=== PATIENT | female | born 1935 | race Caucasian/White ===

== ENCOUNTER → 2018-06-14 | Outpatient (CLI) | payer MEDICARE ==
[2018-06-14 15:48] LABS: PLATELET COUNT, AUTOMATED 445 K/uL (150-450)
== END ==
LOC: LAB 15:13
PROVIDERS: ATTEND Nurse Practitioner Family
DX: R19.7 Diarrhea, unspecified (principal); R10.9 Unspecified abdominal pain
CPT/HCPCS: 36415; 82040; 82247; 82310; 82374; 82435; 82565; 82728; 82947; 83540; 83550; 83735; 84075; 84132; 84155; 84295; 84450; 84460; 84520; 85025; 85651; 86140

== ENCOUNTER 2018-09-12 15:23 | Inpatient (IN) | payer MEDICARE ==
[~2018-09-12] VITALS: Ht 154.9 cm; Wt 41.3 kg
[2018-09-12 16:16] VITALS: BP 164/107
[2018-09-12 19:32] VITALS: BP 145/103
--- NOTE | 2018-09-12 19:32 | History & Physical ---
History of Present Illness Chief Complaint HERNÁNDEZ History of Present Illness 83F with limited PMHx presented with gradual onset HERNÁNDEZ, fatigue, weakness. Reports for several weeks to months has been sleeping upright in chair and finding it harder to get around. Had fall and seemed to have been doing better per son. He lives in [place] and was able to come out and see her then, spoke with him over the phone. She has generally not trusted doctors and avoided them. Denies any chest pain but has clinical signs of heart failure on examination. BNP >1800, admitted for further management and evaluation. History Unable To Obtain Past Medical: Unable to Obtain/Update Home Meds No Active Prescriptions or Reported Meds Allergies: Coded Allergies: No Known Drug Allergies (Unverified , 06/14/18) Patient History: FH: cataracts MOTHER, Smoking Status: Never Smoker Social Drug Use: Never Review of Systems All Systems Reviewed/Normal: Yes, Except as Noted Constitutional: No Fever Cardiovascular: Other (orthopnea); No Chest Pain, No Palpitations, No Orthostatic Hypotension Respiratory: Shortness of Breath, Cough Gastrointestinal: No Nausea, No Vomiting Musculoskeletal: No Pain Exam Vital Signs Vital Signs Date Time Temp Pulse Resp B/P (MAP) Pulse Ox O2 Delivery O2 Flow Rate FiO2 09/12/18 16:30 98 Nasal Cannula 2.0 09/12/18 16:16 98.1 164/107 (126) 09/12/18 16:09 92 16 General Appearance: Alert (mild distress), Awake, Afebrile Neuro: No Gross deficits ENT: Normal Cardiovascular: Other (summation gallop) Respiratory: Other (2L NC and coarse breath sounds b/l) GI: Abd Soft and Non-Tender Musculoskeletal: No Weakness/Pain Extremities: Soft and Non Tender, Warm, Pulses, Perfused, Edema (moderate/sev ere pitting edema to abdomen) Integumentary: Skin Intact without Lesion / Mass Medical Decision Making EKG / Imaging EKG Interpretation NSR with 1st degree av block Assessment and Plan Problems: (1) Heart failure Assessment & Plan: Clinical diagnosis, BNP > 1800, will get ECHO. Place Taylor for accurate I/O, begin IV diuresis and monitor electrolytes. (2) Hypothyroid Assessment & Plan: Per review of labs, will begin small amount levothyroxine. (3) Microcytic anemia Assessment & Plan: Iron studies pending. 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
[2018-09-12] MEDS: FUROSEMIDE 40 MG/4 ML VIAL IVP SCH (22:36)
[2018-09-13] VITALS (7 sets, daily range): BP systolic 123–153; BP diastolic 72–101; Ht 154.9 cm; Wt 41.3 kg
[2018-09-13] MEDS: LEVOTHYROXINE SOD 0.05 MG TAB PO SCH (05:36)
[2018-09-13] MEDS: FUROSEMIDE 40 MG/4 ML VIAL IVP SCH ×2 (08:10→14:50)
[2018-09-13] MEDS: ENOXAPARIN 40 MG/0.4ML SYR SC SCH (08:10)
[2018-09-13] MEDS: POTASSIUM CHL 10 MEQ TABCR PO SCH ×3 (11:26→17:41)
--- NOTE | 2018-09-13 12:25 | NUR ---
Physical Therapy Impression PT/OT nataliiaal completed and pt declines use of any assistive device, noting that she uses furniture for support in her home. Pt demos path deviation with ambulation and depth perception is affected when completing up/down platform steps. Pt became SOB after 100' ambulation on room air and did require a standing rest break. Physical Therapy Goals 1. Pt to be SBA/Modified indep for bed mobility and supine to/from sit 2. Pt to be Min/CGA for sit to/from stand transfers 3. Pt to ambulate x 150' with hand held assist or rail for support and maintain sats above 86% on room air. Patient's Goals
--- NOTE | 2018-09-13 13:26 | NUR ---
Occupational Therapy Impression (I) bed mobility. Pt adamantly refusing use of RW. Reports "furniture crawling" at home. SBA ambulation x150ft with handheld assist. SpO2 >90% on room air at rest. SpO2 80% on room air during ambulation. Seated up in chair for lunch. Recommendation pending further information regarding PLOF and assist from neighbor "Betsey." Pt may benefit from short term rehab or HH services/cardiac rehab. Occupational Therapy Goals 1) Pt will be SBA UB/LB dressing. 2) Pt will be SBA grooming/hygiene. 3) Pt will be SBA toilet task. Patient's Goal
--- NOTE | 2018-09-13 15:35 | Medical Nutrition Therapy ---
Nutrition Anthropometrics Height (Inches): 61.00 Height (Calculated Centimeters: 154.616167 Weight (Pounds): 123 Weight (Calculated Kilograms): 56.019 Guillermo Nutrition Score: Probably Inadequate Guillermo Nutrition Risk Score: 17 Dietary Referral Nutrition Risk Factors: Special Diet Nutrition Risk Comment: Decreased taste. Heart Failure Diet Physical Findings Physical Appearance: Skin Appearance Skin Appearance: Edema Edema Location Modifier: Both Edema Location: Foot Type of Edema: Degree of Edema: 3+ Gastrointestinal Symptoms GI Symtoms: Tube Present: Bowel Sounds: Recent Bowel Pattern: Stool Characteristics: Nutritional Diagnosis Nutritional Risk Acuity 2: CHF w/Complication Nutritional Risk Acuity 4: Modified Diet Past Medical History: Heart Failure, Hyperthyroid, Microcytic Anemia Nutritional Acuity: 2-Moderate Nutrition Diagnosis: Inability to Prep Meals Nutrition Etiology: Impaired Cognitive Abilty Nutrition Problem/Etiology/Sym: Inability to prep meals as evidenced by impaired cognitive ability as related to son sending unhealthy foods, neighbor prepping food and grocery shopping Energy Requirement: 1359 (M St. Jeor X1.1 (TEF) X 1.3 (activity factor)) Protein Requirement: 56 (1 g protein/kg) Fluid Requirement: 1400 Diet Type: CHF Diet Nutrition Intervention: Encourage intake, Change diet, Vit/min support Drug: Diuretics Drug/Nutrition Recommendations: Check Serum K+, Potassium Supplement Nutritional Education Nutrition Education Topic: Congested Heart Failure Learning Barriers: Cognitive, Emotional Learning Readiness: Eager Teaching Methods: Discussion, Handout Response to Teaching: Unable to return demo, Unable to comprehend Teaching Recipient: Patient, Primary Caregiver Nutrition Counseling: RD discussed the heart failure diet with pt and caregiver. Pt had cognitive barriers and did not understand nutrition education. Caregiver was familar with the low sodium diet. RD provided a handout and a discussion with the caregiver on low sodium foods, and avoiding using the salt shaker. -[facility] Nutrition Monitoring & Eval Nutrition Goals: Eat 50-100% Meal, Drink > 1500 cc/day RD Patient Assessment Time: [address] Assessment Type: RD Assessment Patient Nutrition Acuity: 2-Moderate Follow Up Date: Sep 17, 2018 Nutritional Comment: Pt. admitted for HERNÁNDEZ. Pt. has a hx of Heart Failure, Hyperthyroid, Mirocytic Anemia. Pt. is experiencing pitting edema in both feet. Pt. has high BUN levels. Pt. has low iron, Ca, AA, and Albumin levels. Pt. is on a POtassium wasting diuretic (furosemide) and anticoagulant. Pt. is on CHF diet and TREVOR, recommend CHF diet with discontinuation of TREVOR. Monitor edema and anemia status. Monitor food intake. -CHANG 09/13/18 Education provided by DAMIAN. Note reviewed by DAMIAN.-GARRET MONTE Sep 13, 2018 15:35
--- NOTE | 2018-09-13 15:42 | Hospitalist Progress Note ---
Subjective Progress Notes Subjective She reports continued increased WOB. Staff notes improvement in LE edema. Physical Exam Vital Signs Date Time Temp Pulse Resp B/P (MAP) Pulse Ox O2 Delivery O2 Flow Rate FiO2 09/13/18 11:30 83 09/13/18 11:27 97.6 71 20 130/81 (97) Nasal Cannula 0.5 Intake and Output 09/13/18 07:00 Output Total 1575 ml Balance -1575 ml Output Urine Total 1575 ml General Appearance: Alert, Awake, Other (tachypneic. Taking shallow breaths) Cardiovascular: Regular Rate and Rhythm Respiratory: Clear to Auscultation Extremities: Edema (1+ pitting in ankles. Wrinkled skin on shins bilaterally) Result Diagram: 09/13/18 0548 Assessment and Plan Problems: (1) Heart failure Status: Acute Assessment & Plan: The patient presented with sleeping upright for months and progressive HERNÁNDEZ, fatigue and weakness. She was hypoxic, had moderate bilateral pleural effusions on CXR and had significant LE edema. Echo shows an EF 35-40%, global hypokinesis, moderate MR, severe TR, mild AR, small pericardial effusion. She is diuresing well on scheduled IV Lasix. Will need to start Coreg when stable. Also, will need f/u with Cardiology. (2) Hypothyroid Assessment & Plan: Per review of labs, started on a small amount levothyroxine. (3) Microcytic anemia Assessment & Plan: Iron deficient. Will check for occult blood. (4) Aortic aneurysm Status: Chronic Assessment & Plan: Echo shows a proximal ascending aorta dilated to 4.0cm. Will need close follow up. (5) Cataract Assessment & Plan: chronic Exam Sepsis Risk: No Definite Risk Problem Qualifiers (1) Heart failure: Heart failure type: systolic Heart failure chronicity: acute Qualified Codes: I50.21 - Acute systolic (congestive) heart failure KILLIAN ANDERSON MD Sep 13, 2018 15:42
--- NOTE | 2018-09-13 16:41 | NUR ---
Psych/soc Patient states that her eye sight is poor and she is unable to care for herself. She feels as though she is a burden to her neighbor and son. She states she is ready "for ." Patient states she is at peace with this decision. Denies suicidal thoughts.
[2018-09-13] MEDS ORDERED: GI COCKTAIL 60 ML BTL PO PRN (19:35)
[2018-09-13] MEDS ORDERED: PROMETHAZINE 25 MG/ML 1 ML AMP IVP ONE (22:35)
[2018-09-14 05:22] VITALS: BP 132/88
[2018-09-14] MEDS: LEVOTHYROXINE SOD 0.05 MG TAB PO SCH (05:28)
[2018-09-14 06:23] LABS: PLATELET COUNT, AUTOMATED 272 K/uL (150-450)
[2018-09-14 06:59] VITALS: BP 136/82
[2018-09-14] MEDS ORDERED: FERROUS SULFATE 325 MG TAB PO SCH (08:00)
[2018-09-14] MEDS ORDERED: FUROSEMIDE 40 MG TAB PO SCH (09:00)
[2018-09-14] MEDS: ENOXAPARIN 40 MG/0.4ML SYR SC SCH ×2 (09:00→09:26)
[2018-09-14] MEDS ORDERED: POTASSIUM CHL PWDR 20 MEQ PKT PO SCH (09:00)
[2018-09-14] MEDS ORDERED: INFLUENZA VIRUS VAC 0.5ML SYR IM ONLY ONE (09:00)
[2018-09-14] MEDS ORDERED: FUROSEMIDE 20 MG TAB PO SCH (09:00)
[2018-09-14] MEDS ORDERED: METOPROLOL SUCC XL 25 MG TABCR PO SCH (09:00)
--- NOTE | 2018-09-14 11:53 | NUR ---
Physical Therapy Impression PT/OT co-treat for pt safety and time split for billing purposes. Pt is primarily limited by her vision and notes that at home she utilizes furniture to know where she is and for additional support. Pt demos significant improvement since yesterday for ambulation tolerance and is able to maintain >85% on room air with 300' and hand held assist for safety. Pt would certainly benefit from further short-term subacute rehab or [facility] services, but is currently declining any assistance and is requesting to discharge home with assistance of her previous care providers. Physical Therapy Goals 1. Pt to be SBA/Modified indep for bed mobility and supine to/from sit 2. Pt to be Min/CGA for sit to/from stand transfers 3. Pt to ambulate x 150' with hand held assist or rail for support and maintain sats above 86% on room air. Patient's Goals
--- NOTE | 2018-09-14 12:46 | NUR ---
ECF Referral - Discussed with patient the benefits of skilled rehab. Patient stated several times "I'm going home". Attempted to persuade her, she simply looked up and said "You still here?". "I'm going home".
--- NOTE | 2018-09-14 14:08 | Hospitalist Progress Note ---
Subjective Progress Notes Subjective 83F admitted with new diagnosis HFrEF. FANY overnight, diuresed well. Discussed goals of care, she would like to go home without home health. Patient Complains of: Cardiovascular: No: Chest Pain Gastrointestinal: No Nausea, No Vomiting Physical Exam Vital Signs Date Time Temp Pulse Resp B/P (MAP) Pulse Ox O2 Delivery O2 Flow Rate FiO2 09/14/18 06:59 97.9 79 18 136/82 (100) Nasal Cannula 1.0 09/14/18 05:22 96 Intake and Output 09/14/18 07:00 Intake Total 1220 ml Output Total 6275 ml Balance -5055 ml Intake Oral 1220 ml Output Urine Total 6275 ml General Appearance: Alert, Awake, No Acute Distress, Afebrile Neuro: No Gross deficits Eyes: Other (b/l cataract) ENT: Normal Cardiovascular: Normal Rhythm & Peripheral Pulses Respiratory: No Respiratory Distress GI: Soft and Non-Tender Musculoskeletal: No Weakness/Pain Extremities: Soft and Non Tender, Warm, Pulses, Perfused, Edema (much improved mild pitting edema) Integumentary: Skin Intact without Lesion / Mass Result Diagram: 09/14/1854509/14/18545 Assessment and Plan Problems: (1) Heart failure Status: Acute Assessment & Plan: The patient presented with sleeping upright for months and progressive HERNÁNDEZ, fatigue and weakness. She was hypoxic, had moderate bilateral pleural effusions on CXR and had significant LE edema. Echo shows an EF 35-40%, global hypokinesis, moderate MR, severe TR, mild AR, small pericardial effusion. She is diuresing well on scheduled Lasix. Started 12.5mg Metoprolol Succinate, 40mg PO Lasix daily. If safe to ambulate likely discharge tomorrow, recommend HH but she is refusing. Also, will need f/u with Cardiology. (2) Hypothyroid Assessment & Plan: Per review of labs, started on a small amount levothyroxine. (3) Microcytic anemia Assessment & Plan: Iron deficient. Will check for occult blood. Started iron supplement. (4) Aortic aneurysm Status: Chronic Assessment & Plan: Echo shows a proximal ascending aorta dilated to 4.0cm. Will need close follow up. (5) Cataract Assessment & Plan: chronic Exam Sepsis Risk: No Definite Risk Problem Qualifiers (1) Heart failure: Heart failure type: systolic Heart failure chronicity: acute Qualified Codes: I50.21 - Acute systolic (congestive) heart failure NOÉ FORREST DO Sep 14, 2018 14:08
[2018-09-14 14:17] VITALS: BP 165/91
--- NOTE | 2018-09-14 14:21 | NUR ---
Occupational Therapy Impression Co-treat with PT. OT recommends pt. d/c to short term subacute rehab. Pt. not willing to do so. Pt. refusing care services as well. Pt. will d/c to home with assistance from caregiver. Occupational Therapy Goals 1) Pt will be SBA UB/LB dressing. 2) Pt will be SBA grooming/hygiene. 3) Pt will be SBA toilet task. Patient's Goal
[2018-09-14] MEDS ORDERED: LEVO50TA86 PO (15:32)
[2018-09-14] MEDS ORDERED: FURO-45 PO (15:32)
[2018-09-14] MEDS ORDERED: METO25TA23 PO (15:32)
--- NOTE | 2018-09-14 15:38 | Hospitalist Depart ---
Discharge Summary Reason for Hosp/Final Diag: (1) Heart failure Status: Acute Hospital Course & Plan: The patient presented with sleeping upright for months and progressive HERNÁNDEZ, fatigue and weakness. She was hypoxic, had moderate bilateral pleural effusions on CXR and had significant LE edema. Echo shows an EF 35-40%, global hypokinesis, moderate MR, severe TR, mild AR, small pericardial effusion. She is diuresing well on scheduled Lasix. Started 12.5mg Metoprolol Succinate, 20mg PO Lasix daily. Will need follow up with PCP to monitor and adjust heart failure medication. (2) Hypothyroid Hospital Course & Plan: Per review of labs, started on a small amount levothyr oxine. (3) Microcytic anemia Hospital Course & Plan: Iron deficient. Recommend iron supplementation, did not start at this time as she has trouble trusting doctors and prioritized heart failure and thyroid Rx. (4) Aortic aneurysm Status: Chronic Hospital Course & Plan: Echo shows a proximal ascending aorta dilated to 4.0cm. Will need close follow up. (5) Cataract Hospital Course & Plan: chronic Departure Weight (Pounds): 91 Weight (Ounces): 8.0 Result Diagram: 09/14/1854509/14/18545 Condition: Improved Discharge Instructions Home Meds Active Scripts Metoprolol Succinate (METOPROLOL SUCCINATE) 25 Mg Tab.er.24h, 12.5 MG PO DAILY for 90 Days, #45 TAB Prov:NOÉ FORREST DO 09/14/18 Furosemide (FUROSEMIDE) 20 Mg Tablet, 1 TAB PO DAILY for 90 Days, #90 TAB Prov:NOÉ FORREST DO 09/14/18 Levothyroxine Sodium (LEVOTHYROXINE SODIUM) 50 Mcg Tablet, 0.05 MG PO QDAY@06 for 90 Days, #90 TAB Prov:NOÉ FORREST DO 09/14/18 Diet: 2 Gram Sodium (NA) Special Instructions: Please follow up with PCP within one week. You have been started on new medications for heart failure and low thyroid. Copies to: BLOSSOM ROMERO MD ; Venous Thromboembolism Antithrombotics Is Pt On Any Antithrombotics?: Yes Problem Qualifiers (1) Heart failure: Heart failure type: systolic Heart failure chronicity: acute Qualified Codes: I50.21 - Acute systolic (congestive) heart failure NOÉ FORREST DO Sep 14, 2018 15:38
== END 2018-09-14 16:45 | disposition home or self-care (01) | DRG 292 ==
LOC: MED 15:43
PROVIDERS: ADMIT Internal Medicine; ATTEND Internal Medicine
DX: I50.21 Acute systolic (congestive) heart failure (principal); I31.3 Pericardial effusion (noninflammatory); E44.0 Moderate protein-calorie malnutrition; Z68.1 Body mass index [BMI] 19.9 or less, adult; R53.1 Weakness; R09.02 Hypoxemia; I34.0 Nonrheumatic mitral (valve) insufficiency; I35.1 Nonrheumatic aortic (valve) insufficiency; I36.1 Nonrheumatic tricuspid (valve) insufficiency; I44.0 Atrioventricular block, first degree; D50.9 Iron deficiency anemia, unspecified; I71.9 Aortic aneurysm of unspecified site, without rupture; H26.9 Unspecified cataract; E03.9 Hypothyroidism, unspecified
CPT/HCPCS: 36415; 71046; 82040; 82247; 82306; 82310; 82374; 82435; 82565; 82607; 82728; 82746; 82947; 83540; 83550; 83880; 84075; 84132; 84155; 84295; 84443; 84450; 84460; 84520; 85025; 85379; 86140; 93306; 97161; 97166; J1650; J1940; J2550

== ENCOUNTER → 2018-09-12 | Outpatient (CLI) | payer MEDICARE ==
[2018-09-12 14:20] LABS: PLATELET COUNT, AUTOMATED 303 K/uL (150-450)
--- NOTE | 2018-09-12 14:22 | EKG ---
FACILITY: [facility] [place] PATIENT NAME: DEJA DOTSON : [id number] MR: [id number] V: [id number] EXAM DATE: ORDERING PHYSICIAN: BLOSSOM ROMERO TECHNOLOGIST: EMMA Test Reason : Blood Pressure : / mmHG Vent. Rate : 084 BPM Atrial Rate : 084 BPM P-R Int : 236 ms QRS Dur : 086 ms QT Int : 384 ms P-R-T Axes : 039 067 052 degrees QTc Int : 453 ms Sinus rhythm with 1st degree AV block Otherwise normal ECG No previous ECGs available Referred By: NICK Confirmed By:
--- NOTE | 2018-09-12 15:05 | RADIOLOGY IMAGING REPORT ---
FACILITY: [facility] PATIENT NAME: Lalita Kenney : 1935 MR: [id number] V: [id number] EXAM DATE: ORDERING PHYSICIAN: BLOSSOM ROMERO TECHNOLOGIST: Location: [facility] [place] Patient: Lalita Kenney : 1935 Visit/Account:[id number] Date of Sevice: 09/12/2018 CHEST PA LAT Indication: Dyspnea. Comparison: None. Findings: Lungs: Bilateral pleural effusions are seen. Prominent interstitial markings throughout both lungs a re noted. Mediastinum/pulmonary vasculature: Heart size and pulmonary vasculature are normal. Bones/soft tissues: There is moderate thoracic scoliosis. IMPRESSION: 1. Bilateral moderate pleural effusions. 2. Prominent interstitial markings both lungs. Differential diagnosis favors chronic interstitial l maldonado disease, however pulmonary vasculature congestion is in the differential diagnosis. There is no acute airspace opacity or pneumonia. This was called by Dr. Cole to BLOSSOM ROMERO on 09/12/2018 2:24 PM Report Dictated By: Clayton Cole at 09/12/2018 2:24 PM Report E-Signed By: Clayton Cole at 09/12/2018 3:00 PM WSN:[id number]
== END ==
LOC: LAB 13:30
PROVIDERS: ATTEND Emergency Medicine
DX: J90 Pleural effusion, not elsewhere classified (principal); M41.84 Other forms of scoliosis, thoracic region; R91.8 Other nonspecific abnormal finding of lung field; I44.0 Atrioventricular block, first degree
CPT/HCPCS: 36415; 71046; 82040; 82247; 82306; 82310; 82374; 82435; 82565; 82607; 82746; 82947; 83540; 83550; 83880; 84075; 84132; 84155; 84295; 84443; 84450; 84460; 84520; 85025; 85379; 86140

== ENCOUNTER 2018-11-02 14:43 | Inpatient (IN) | payer MEDICARE, OTHER ==
[~2018-11-02] VITALS: Ht 154.9 cm; Wt 43.5 kg
[~2018-11-02 14:43] MED LIST: FURO-45 PO; LEVO50TA86 PO; METO25TA23 PO
--- NOTE | 2018-11-02 14:52 | ER Report ---
History and Physical Time Seen By MD: 14:51 HPI/ROS CHIEF COMPLAINT: Weakness HISTORY OF PRESENT ILLNESS: 83 yo female presents to the ED with her neighbor/machine or machinery mechanic with c/o weakness. Drawing Tender states that when she went to patient's house to check on her, the patient was sitting in her chair and stated that "her legs didn't work and her legs would not let her walk.' The machine or machinery mechanic stated that she took the patient to run a few errands on Tuesday and this activity made the patient very tired and weak even though the patient stayed in the car during the errands. When the machine or machinery mechanic checked on patient today she states that the patient seemed in even worse condition than she was on Tuesday. Patient states that she feels very weak and feels like she cannot breathe. She reports abdominal pain but denies difficulty with urination and reports two bowel movements earlier today. Reports chest pain to the anterior upper left side but only when someone "presses on it." Denies N/V/D, fever or cough and denies any recent illness. Patient did state that she holds onto furniture when she walks around her home normally. REVIEW OF SYSTEMS: Constitutional: No fever, no chills. Eyes: No discharge. ENT: No sore throat. Cardiovascular: as above. Respiratory: As above. Gastrointestinal: As above. Genitourinary: As above. Musculoskeletal: As above. Skin: No rashes. Neurological: No headache. Allergies: Coded Allergies: No Known Drug Allergies (Unverified , 06/14/18) Home Meds Active Scripts Metoprolol Succinate (METOPROLOL SUCCINATE) 25 Mg Tab.er.24h, 12.5 MG PO DAILY for 90 Days, #45 TAB Prov:SHAWN AMADORNOÉ DO 09/14/18 Furosemide (FUROSEMIDE) 20 Mg Tablet, 1 TAB PO DAILY for 90 Days, #90 TAB Prov:SHAWN AMADORNOÉ DO 09/14/18 Levothyroxine Sodium (LEVOTHYROXINE SODIUM) 50 Mcg Tablet, 0.05 MG PO QDAY@06 for 90 Days, #90 TAB Prov:SHAWN AMADORNOÉ DO 09/14/18 Past Medical/Surgical History Past medical and surgical history congestive heart, wears glasses, cataracts. Smoking Status: Never Smoker Constitutional Vital Sign - Last 24 Hours 4/411/02/18 11/02/18 11/02/18 14:51 14:55 14:55 15:00 Temp 97.8 Pulse 80 Resp 26 B/P (MAP) 160/112 161/116 (131) 161/116 (131) Pulse Ox 89 O2 Delivery Room Air O2 Flow Rate 4.0 11/02/18 11/02/18 11/02/18 11/02/18 15:13 15:15 15:30 15:43 Pulse 85 88 Resp 25 28 B/P (MAP) 178/117 (137) 159/119 (132) Pulse Ox 100 99 11/02/18 11/02/18 11/02/18 11/02/18 15:45 16:00 16:13 16:30 Pulse 86 Resp 25 B/P (MAP) 154/109 (124) 153/114 (127) 157/113 (128) Pulse Ox 100 11/02/18 11/02/18 11/02/18 11/02/18 16:35 16:45 17:00 17:05 Pulse 85 Resp 26 B/P (MAP) 147/106 (120) 156/105 (122) Pulse Ox 85 O2 Delivery Room Air Physical Exam General Appearance: The patient is alert, has no immediate need for airway protection and no signs of toxicity. Eyes: Pupils equal and round no pallor or injection. ENT, Mouth: Mucous membranes are moist. Respiratory: Dyspnea, Lung sounds diminshed on auscultation. Cardiovascular: Regular rate and rhythm. Gallop noted Gastrointestinal: Abdomen is soft with tenderness to the RLQ, no masses, bowel sounds normal. Neurological: A&Ox4, follows commands. Skin: Warm and dry, no rashes. Musculoskeletal: Neck is supple non tender. Extremities are tender, with 3+ edema DIFFERENTIAL DIAGNOSIS: After history and physical exam differential diagnosis was considered for CHF exacerbation, pneumonia, sepsis, [place], pleural effusion, COPD. Medical Decision Making Data Points Result Diagram: 11/02/18 1527 11/02/18 1527 Laboratory Hematology Test 11/02/18 15:27 11/02/18 15:54 Red Blood Count 4.44 M/uL (4.17-5.56) Mean Corpuscular Volume 77.0 fL (80.0-96.0) Mean Corpuscular Hemoglobin 22.4 pg (26.0-33.0) Mean Corpuscular Hemoglobin Concent 29.1 g/dL (32.0-36.0) Red Cell Distribution Width 27.4 % (11.5-14.5) Mean Platelet Volume 8.6 fL (7.2-11.1) Neutrophils (%) (Auto) % (39.4-72.5) Lymphocytes (%) (Auto) % (17.6-49.6) Monocytes (%) (Auto) % (4.1-12.4) Eosinophils (%) (Auto) % (0.4-6.7) Basophils (%) (Auto) % (0.3-1.4) Nucleated RBC Relative Count (auto) /100WBC Neutrophils # (Auto) K/uL (2.0-7.4) Lymphocytes # (Auto) K/uL (1.3-3.6) Monocytes # (Auto) K/uL (0.3-1.0) Eosinophils # (Auto) K/uL (0.0-0.5) Basophils # (Auto) K/uL (0.0-0.1) Nucleated RBC Absolute Count (auto) K/uL Neutrophils % (Manual) 42 % (39.4-72.5) Band Neutrophils % 1 % Lymphocytes % (Manual) 43 % (17.6-49.6) Monocytes % (Manual) 13 % (4.1-12.4) Eosinophils % (Manual) 0 % (0.4-6.7) Basophils % (Manual) 1 % (0.3-1.4) Platelet Estimate Normal Hypochromasia 2 Poikilocytosis 1+ Anisocytosis 3+ Ovalocytes 1+ Peripheral Blood Smear Yes Y/N Sodium Level 143 mmol/L (137-145) Potassium Level 4.1 mmol/L (3.5-5.0) Chloride Level 110 mmol/L (98-107) Carbon Dioxide Level 24 mmol/L (22-31) Blood Urea Nitrogen 25 mg/dl (7-18) Creatinine 0.80 mg/dl (0.52-1.04) Glomerular Filtration Rate Calc > 60.0 Random Glucose 82 mg/dl (75-110) Lactate 2.9 mmol/L (0.7-2.1) Calcium Level 8.5 mg/dl (8.4-10.2) Total Bilirubin 0.8 mg/dl (0.2-1.3) Aspartate Amino Transf (AST/SGOT) 72 U/L (0-35) Alanine Aminotransferase (ALT/SGPT) 51 U/L (0-56) Alkaline Phosphatase 144 U/L (0-126) Troponin I 0.013 ng/ml B-Type Natriuretic Peptide 3690 pg/ml (0-100) Total Protein 7.1 g/dl (6.3-8.2) Albumin 3.4 g/dl (3.5-5.0) Urine Color Elissa Urine Clarity Slightly-cloudy Urine pH 5.0 pH (4.8-9.5) Urine Specific [place] 1.023 Urine Protein 30 mg/dL (NEGATIVE) Urine Glucose (UA) Negative mg/dL (NEGATIVE) Urine Ketones Negative mg/dL (NEGATIVE) Urine Blood Negative (NEGATIVE) Urine Nitrite Negative (NEGATIVE) Urine Bilirubin Negative (NEGATIVE) Urine Urobilinogen 4.0 mg/dL (0.2-1.9) Urine Leukocyte Esterase Negative (NEGATIVE) Urine RBC 1 /HPF (0-2/HPF) Urine WBC 1 /HPF (0-5/HPF) Urine Squamous Epithelial Cells Few /LPF (NONE-FEW) Urine Bacteria Few /HPF (NONE-FEW) Urine Hyaline Casts Few /LPF (NONE-FEW) Urine Mucus Few /HPF (NONE-FEW) Chemistry Test 11/02/18 15:27 11/02/18 15:54 White Blood Count 3.5 k/uL (4.5-11.0) Red Blood Count 4.44 M/uL (4.17-5.56) Hemoglobin 9.9 g/dL (12.0-16.0) Hematocrit 34.1 % (34.0-47.0) Mean Corpuscular Volume 77.0 fL (80.0-96.0) Mean Corpuscular Hemoglobin 22.4 pg (26.0-33.0) Mean Corpuscular Hemoglobin Concent 29.1 g/dL (32.0-36.0) Red Cell Distribution Width 27.4 % (11.5-14.5) Platelet Count 258 K/uL (150-450) Mean Platelet Volume 8.6 fL (7.2-11.1) Neutrophils (%) (Auto) % (39.4-72.5) Lymphocytes (%) (Auto) % (17.6-49.6) Monocytes (%) (Auto) % (4.1-12.4) Eosinophils (%) (Auto) % (0.4-6.7) Basophils (%) (Auto) % (0.3-1.4) Nucleated RBC Relative Count (auto) /100WBC Neutrophils # (Auto) K/uL (2.0-7.4) Lymphocytes # (Auto) K/uL (1.3-3.6) Monocytes # (Auto) K/uL (0.3-1.0) Eosinophils # (Auto) K/uL (0.0-0.5) Basophils # (Auto) K/uL (0.0-0.1) Nucleated RBC Absolute Count (auto) K/uL Neutrophils % (Manual) 42 % (39.4-72.5) Band Neutrophils % 1 % Lymphocytes % (Manual) 43 % (17.6-49.6) Monocytes % (Manual) 13 % (4.1-12.4) Eosinophils % (Manual) 0 % (0.4-6.7) Basophils % (Manual) 1 % (0.3-1.4) Platelet Estimate Normal Hypochromasia 2 Poikilocytosis 1+ Anisocytosis 3+ Ovalocytes 1+ Peripheral Blood Smear Yes Y/N Glomerular Filtration Rate Calc > 60.0 Lactate 2.9 mmol/L (0.7-2.1) Calcium Level 8.5 mg/dl (8.4-10.2) Total Bilirubin 0.8 mg/dl (0.2-1.3) Aspartate Amino Transf (AST/SGOT) 72 U/L (0-35) Alanine Aminotransferase (ALT/SGPT) 51 U/L (0-56) Alkaline Phosphatase 144 U/L (0-126) Troponin I 0.013 ng/ml B-Type Natriuretic Peptide 3690 pg/ml (0-100) Total Protein 7.1 g/dl (6.3-8.2) Albumin 3.4 g/dl (3.5-5.0) Urine Color Elissa Urine Clarity Slightly-cloudy Urine pH 5.0 pH (4.8-9.5) Urine Specific [place] 1.023 Urine Protein 30 mg/dL (NEGATIVE) Urine Glucose (UA) Negative mg/dL (NEGATIVE) Urine Ketones Negative mg/dL (NEGATIVE) Urine Blood Negative (NEGATIVE) Urine Nitrite Negative (NEGATIVE) Urine Bilirubin Negative (NEGATIVE) Urine Urobilinogen 4.0 mg/dL (0.2-1.9) Urine Leukocyte Esterase Negative (NEGATIVE) Urine RBC 1 /HPF (0-2/HPF) Urine WBC 1 /HPF (0-5/HPF) Urine Squamous Epithelial Cells Few /LPF (NONE-FEW) Urine Bacteria Few /HPF (NONE-FEW) Urine Hyaline Casts Few /LPF (NONE-FEW) Urine Mucus Few /HPF (NONE-FEW) Urinalysis Test 11/02/18 15:54 Urine Color Elissa Urine Clarity Slightly-cloudy Urine pH 5.0 pH (4.8-9.5) Urine Specific [place] 1.023 Urine Protein 30 mg/dL (NEGATIVE) Urine Glucose (UA) Negative mg/dL (NEGATIVE) Urine Ketones Negative mg/dL (NEGATIVE) Urine Blood Negative (NEGATIVE) Urine Nitrite Negative (NEGATIVE) Urine Bilirubin Negative (NEGATIVE) Urine Urobilinogen 4.0 mg/dL (0.2-1.9) Urine Leukocyte Esterase Negative (NEGATIVE) Urine RBC 1 /HPF (0-2/HPF) Urine WBC 1 /HPF (0-5/HPF) Urine Squamous Epithelial Cells Few /LPF (NONE-FEW) Urine Bacteria Few /HPF (NONE-FEW) Urine Hyaline Casts Few /LPF (NONE-FEW) Urine Mucus Few /HPF (NONE-FEW) EKG/Imaging EKG Interpretation 12 lead EKG: Time of EKG 1505. Rhythm: Sinus rhythm with a 1st degree AV block. [place]: normal QRS: Low-voltage. ST segments: No ST depression or elevation identified. Nonspecific T-wave abnormalities when compared to previous EKG. Imaging FACILITY: [facility] PATIENT NAME: Lalita Kenney : 1935 MR: [id number] V: [id number] EXAM DATE: ORDERING PHYSICIAN: FLORIAN KYLE TECHNOLOGIST: Location: [facility] Patient: Lalita Kenney : 1935 Visit/Account:[id number] Date of Sevice: 11/02/2018 Exam type: ACUTE ABDOMEN SERIES 3 VIEW History: RESP DISTRESS Comparison: Two view chest September 12, 2013. Findings: Moderate bilateral pleural effusions are slightly increased there is mild increased airspace consolidation in the lung bases consistent with infiltrates and/or atelectasis. Chronic interstitial changes are again noted throughout the lungs. There is cardiomegaly present that appears unchanged. Supine and upright views of the abdomen demonstrate a nonspecific bowel gas pattern. There is no free air beneath hemidiaphragms. Is a levoconvex scoliosis lumbar spine. Large calcified mass is noted within the pelvis which may represent a fibroid IMPRESSION: 1. Nonspecific bowel gas pattern Moderate bilateral pleural effusions have slightly increased since the prior 2018. There is increasing airspace consolidation lung bases consistent with atelectasis and or infiltrates Report Dictated By: Karyna Wu MD at 11/02/2018 4:44 PM Report E-Signed By: Karyna Wu MD at 11/02/2018 4:46 PM WSN:ALEX ED Course/Re-evaluation ED Course Admitted to ED room. IV started. CBC, CMP, BMP obtained. BNP was significantly elevated from previous lab studies, elevated from 903 to 3690. Trop was negative, EKG was unremarkable and similar to previous EKG, no ST depression or elevation. Xray revealed moderated bilateral pleural effusions that have slightly increased since since prior xray 07/2019. Lung bases consistent with atelectasis. 40 mg IV lasix was administered. Room air saturation 85%, up to 94- 98% on simple mask. Dr Gold was consulted and agreed to admit patient for CHF exacerbation. 11/02/2018 5:17:[address] Gold hospitalist we discussed that he simply agreed to admit the patient for further CHF exacerbation. I personally examined the patient, I agree with VANE York students assessment and diagnosis. Decision to Disposition Date: Nov 02, 2018 Decision to Disposition Time: 17:18 Depart Departure Latest Vital Signs Vital Signs Date Time Temp Pulse Resp B/P (MAP) Pulse Ox O2 Delivery O2 Flow Rate FiO2 11/02/18 17:05 85 Room Air 11/02/18 17:00 156/105 (122) 11/02/18 16:35 85 26 11/02/18 14:55 4.0 11/02/18 14:51 97.8 Impression: Primary Impression: CHF exacerbation Condition: Improved Disposition: Admitted from ER Referrals: BLOSSOM ROMERO MD (PCP) Problem Qualifiers Primary Impression: CHF exacerbation Heart failure type: unspecified Qualified Codes: I50.9 - Heart failure, un specified FLORIAN KYLE [facility]- Nov 02, 2018 14:52
[2018-11-02 16:00] LABS: PLATELET COUNT, AUTOMATED 258 K/uL (150-450)
--- NOTE | 2018-11-02 16:52 | RADIOLOGY IMAGING REPORT ---
FACILITY: [facility] [place] PATIENT NAME: Lalita Kenney : 1935 MR: [id number] V: [id number] EXAM DATE: ORDERING PHYSICIAN: FLORIAN KYLE TECHNOLOGIST: Location: [facility] Patient: Lalita Kenney : 1935 Visit/Account:[id number] Date of Sevice: 11/02/2018 Exam type: ACUTE ABDOMEN SERIES 3 VIEW History: RESP DISTRESS Comparison: Two view chest September 12, 2013. Findings: Moderate bilateral pleural effusions are slightly increased there is mild increased airspace consolid ation in the lung bases consistent with infiltrates and/or atelectasis. Chronic interstitial changes are again noted throughout the lungs. There is cardiomegaly present that appears unchanged. Supine and upright views of the abdomen demonstrate a nonspecific bowel gas pattern. There is no heaven e air beneath hemidiaphragms. Is a levoconvex scoliosis lumbar spine. Large calcified mass is noted within the pelvis which may represent a fibroid IMPRESSION: 1. Nonspecific bowel gas pattern Moderate bilateral pleural effusions have slightly increased since the prior 2018. There is incre asing airspace consolidation lung bases consistent with atelectasis and or infiltrates Report Dictated By: Karyna Wu MD at 11/02/2018 4:44 PM Report E-Signed By: Karyna Wu MD at 11/02/2018 4:46 PM WSN:[email or web address]
[2018-11-02] MEDS ORDERED: FUROSEMIDE 40 MG/4 ML VIAL IVP ONE (17:20)
[2018-11-02 18:20] VITALS: BP 149/113
--- NOTE | 2018-11-02 18:36 | EKG ---
FACILITY: [facility] [place] PATIENT NAME: DEJA DOTSON : [id number] MR: [id number] V: [id number] EXAM DATE: ORDERING PHYSICIAN: FLORIAN KYLE TECHNOLOGIST: Test Reason : Chest pain Blood Pressure : / mmHG Vent. Rate : 085 BPM Atrial Rate : 085 BPM P-R Int : 218 ms QRS Dur : 078 ms QT Int : 386 ms P-R-T Axes : 027 017 040 degrees QTc Int : 459 ms Sinus rhythm with 1st degree AV block R wave progression consistent with old ant/sep [place] vs lead placement When compared with ECG of 12-SEP-2018 13:45, Now with poor R wave progression, but previous ECG has baseline artifact Confirmed by KILLIAN ANDERSON ([id number]) on 11/02/2018 9:12:21 PM Referred By: Confirmed By:KILLIAN ANDERSON
--- NOTE | 2018-11-02 20:03 | History & Physical ---
History of Present Illness History of Present Illness 83yo female with a h/o HFrEF and hypothyrodism who was brought to the ER for weakness. The history is from the patient (difficult historian) and the ER provider. She was in the hospital about 2 months ago for newly diagnosed heart failure. She has a neighbor who checks in on her. 2 days ago, the neighbor too k her on some errands and the patient fatigued very easily compared to baseline. Today, the neighbor checked in and the patient was unable to walk because of global weakness. She also has had difficulty swallowing matty ice cream, yesterday. The patient denies orthopnea, but does have LE edema. Apparently, there is some concern about whether the patient is taking her medications. History Problems: (1) Heart failure Status: Chronic (2) Microcytic anemia Status: Chronic (3) Hypothyroid Status: Chronic Home Meds Active Scripts Metoprolol Succinate (METOPROLOL SUCCINATE) 25 Mg Tab.er.24h, 12.5 MG PO DAILY for 90 Days, #45 TAB Prov:ESCOBAR PERRYNOÉ 09/14/18 Furosemide (FUROSEMIDE) 20 Mg Tablet, 1 TAB PO DAILY for 90 Days, #90 TAB Prov:ESCOBAR PERRYNOÉ 09/14/18 Levothyroxine Sodium (LEVOTHYROXINE SODIUM) 50 Mcg Tablet, 0.05 MG PO QDAY@06 for 90 Days, #90 TAB Prov:ESCOBAR PERRYNOÉ [place] 09/14/18 Allergies: Coded Allergies: No Known Drug Allergies (Unverified , 06/14/18) Patient History: FH: cataracts MOTHER, Other Social/Family Hx . Lives alone. Son in [place]. No tobacco or alcohol use. Hx Smoking: No Smoking Status: Never Smoker Hx Alcohol Use: No Hx Substance Use Disorder: No Social Drug Use: Never Review of Systems All Systems Reviewed/Normal: Yes, Except as Noted Exam Vital Signs Vital Signs Date Time Temp Pulse Resp B/P (MAP) Pulse Ox O2 Delivery O2 Flow Rate FiO2 11/02/18 18:20 98.2 74 20 149/113 (125) 91 Oxy Mask 2.0 General Appearance: Alert, Awake, No Acute Distress (cachectic appearing) Eyes: PERRLA ENT: Other (tacky mm) Cardiovascular: Regular Rate and Rhythm (2/6 sys on lsb) Respiratory: Other (insp crackles in the left base) GI: Abd Soft and Non-Tender Extremities: Edema (1-2+ pitting to knees bilaterally) Integumentary: No Jaundice, No Cyanosis Medical Decision Making Data Points Result Diagram: 11/02/18 1527 11/02/18 152 Item Value Date Time Hemoglobin 9.0 g/dL *L 09/14/18 0546 Hemoglobin 9.9 g/dL L 11/02/18 152 White Blood Count 3.5 k/uL L 11/02/18 152 White Blood Count 3.9 k/uL L 09/14/18 0546 Mean Corpuscular Volume 71.9 fL L 09/14/18 0546 Mean Corpuscular Volume 77.0 fL L 11/02/18 152 Red Cell Distribution Width 24.2 % H 09/14/18545 Red Cell Distribution Width 27.4 % H 11/02/18 1527 Neutrophils % (Manual) 42 % 11/02/18 1527 Band Neutrophils % 1 % 11/02/18 1527 Lymphocytes % (Manual) 43 % 11/02/18 1527 Monocytes % (Manual) 13 % H 11/02/18 1527 Eosinophils % (Manual) 0 % L 11/02/18 152 EKG / Imaging EKG Interpretation NSR. No ST-T abnormalities. Difficult to compare to previous because of previous wandering baseline. Imaging 3 way of abdomen - 1. Nonspecific bowel gas pattern Moderate bilateral pleural effusions have slightly increased since the prior 2018. There is increasing airspace consolidation lung bases consistent with atelectasis and or infiltrates Assessment and Plan Problems: (1) HFrEF (heart failure with reduced ejection fraction) Status: Acute Assessment & Plan: She presented with progressive weakness, worsening LE edema, worsening pleural effusions by CXR, hypoxic, elevated lactate and elevated BNP. Echo from September showed an EF 35-40%, global hypokinesis, moderate MR, severe TR, mild AR. There is concern of non-compliance with medications and ability to thrive at home. She will be started on IV Lasix tomorrow at 20mg bid. She is now on O2. Recheck lactate and BNP in the morning with O2 use. OT/PT to evaluate. TCN consulted. (2) Microcytic anemia Status: Chronic Assessment & Plan: Noted and stable since June. She has been iron deficient and borderline folate deficient. Repeat labs tomorrow and check for occult blood in stools. Start iron sulfate 325mg every other day with vitamin C. (3) Swallowing difficulty Status: Acute Assessment & Plan: It is difficult to know how long she has struggled with swallowing. However, the day before admission, she struggled with matty ice cream. Will ask ST to evaluate. Because of her low body fat, difficulty swallowing and concern about her ability to manage at home; will check a prealbumin. (4) Hypothyroid Status: Chronic Assessment & Plan: Hypothyroid in September. Supposedly on levothyroxine. Recheck TSH. (5) Aortic aneurysm Status: Chronic Venous Thromboembolism Antithrombotics Is Pt On Any Antithrombotics?: No Exam Sepsis Risk: No Definite Risk KILLIAN ANDERSON MD Nov 02, 2018 20:03
[2018-11-02 23:24] VITALS: BP 152/96
[2018-11-02] MEDS ORDERED: ACETAMINOPHEN 500 MG TAB PO PRN (23:50)
[2018-11-03 03:51] VITALS: BP 134/84
[2018-11-03] MEDS ORDERED: LEVOTHYROXINE SOD 0.05 MG TAB PO SCH (06:00)
[2018-11-03 06:02] LABS: PLATELET COUNT, AUTOMATED 233 K/uL (150-450)
[2018-11-03 06:45] VITALS: BP 139/88
[2018-11-03 06:51] VITALS: BP 109/67
[2018-11-03 08:25] VITALS: Ht 154.9 cm; Wt 43.5 kg
[2018-11-03] MEDS ORDERED: METOPROLOL SUCC XL 25 MG TABCR PO SCH (09:00)
[2018-11-03] MEDS ORDERED: FUROSEMIDE 20 MG/2 ML VIAL IVP SCH (09:00)
[2018-11-03] MEDS ORDERED: ASCORBIC ACID 500 MG TAB PO SCH (09:00)
[2018-11-03] MEDS ORDERED: ENOXAPARIN 40 MG/0.4ML SYR SC SCH (09:00)
[2018-11-03] MEDS ORDERED: FERROUS SULFATE 325 MG TAB PO SCH (09:00)
[2018-11-03] MEDS ORDERED: LORazepam 2 MG/ML VIAL IV PRN (09:15)
[2018-11-03] MEDS ORDERED: SCOPOLAMINE 1.5 MG PATCH TD PRN (09:15)
[2018-11-03] MEDS ORDERED: PATCH REMOVAL 1 EA TP PRN (09:15)
[2018-11-03] MEDS: MORPHINE 2 MG/ML SYR IV PRN ×2 (09:54→20:00)
--- NOTE | 2018-11-03 10:37 | Medical Nutrition Therapy ---
Nutrition Anthropometrics Height (Inches): 61.00 Height (Calculated Centimeters: 154.409611 Weight (Pounds): 96 Weight (Calculated Kilograms): 43.772 Guillermo Nutrition Score: Probably Inadequate Guillermo Nutrition Risk Score: 17 Dietary Referral Nutrition Risk Factors: Diff. Swallowing Nutrition Risk Comment: Decreased taste. Heart Failure Diet Physical Findings Physical Appearance: Underweight BMI<19 Skin Appearance Skin Appearance: Edema Edema Location Modifier: Both Edema Location: Lower Extremity Type of Edema: Degree of Edema: 3+ Gastrointestinal Symptoms GI Symtoms: Tube Present: Bowel Sounds: Recent Bowel Pattern: Stool Characteristics: Nutritional Diagnosis Nutritional Risk Acuity 2: Swallowing Problem Nutritional Risk Acuity 4: Age Related Past Medical History: Heart Failure, Hyperthyroid, Microcytic Anemia Nutritional Acuity: 2-Moderate Nutrition Diagnosis: Under-weight Nutrition Etiology: Physiological Causes Nutrition Problem/Etiology/Sym: Underweight related to physiological causes as evidenced by low BMI (18.1) and swallowing difficulties. Energy Requirement: 1177 (MSJ, 1.1 TEF, 1.3 AF) Adjusted Energy Requirement Re: 1427 (+250kcal) Protein Requirement: 44 (1g AA/kg of BW) Fluid Requirement: 1427 (1ml/kcal of adusted energy requirement) Diet Type: CHF Diet Nutrition Intervention: Cont diet as ordered, Encourage intake Drug: Diuretics Drug/Nutrition Recommendations: Check Serum K+ Diet Comment To RSA: OFFER NUTRITIONAL SUPPLEMENT Nutrition Monitoring & Eval Nutrition Goals: Eat 50-100% Meal RD Patient Assessment Time: [address] Assessment Type: RD Assessment Patient Nutrition Acuity: 2-Moderate Follow Up Date: Nov 06, 2018 Nutritional Comment: 11/03: Pt admitted for HFrEF, anemia, swallowing difficulty, and aortic aneurysm. Pt hx Heart Failure, Hyperthyroid, Microcytic Anemia. Pt currently taking furosemide (diuretic). Pt has elevated BUN (25), AST (45), and b-natriuretic peptide ([id number]). Pt has decreased RBG (61), calcium (8.2), iron (23), total protein (6), and albumin (2.7). Pt on heart failure diet with no intake reported. Offer nutritional supplement. Pt reported swallowing difficulties, recommend speech evaluation. Continue to montior and encourage intake, check serum K+. -ENRICO CHEEMA Nov 03, 2018 08:33
--- NOTE | 2018-11-03 11:20 | NUR ---
Bedside Dysphagia Evaluation Proceeded with bedside dysphagia evaluation to assist in developing diet modification recommendations and compensatory strategies to optimize comfort and enjoyment associated with PO intake. At this time, recommend mechanically altered solids per patient preference. Modifying diet may alleviate reported globus sensation and reduce level of effort required for swallowing. Additionally discussed option to pursue objective analysis of the oropharyngeal swallow, and potential referral to a GI specialist. Goals of care continue to evolve, with likely transition to comfort measures. In this case, further objective assessment would not be recommended or appropriate. Suspect that dysphagia is primarily esophageal in nature. Persistent "sticking" reported at the midsternal region. See full report for details. Further skilled ST interventions will be placed on hold at this time pending decision re: goals of care. Pt likely to transition to comfort measures. She would like to return home as soon as possible. RECOMMENDATIONS 1. Diet: mechanically altered solids to alleviate globus sensation, improve oral phase efficiency, and heighten comfort/enjoyment during PO intake; thin liquids. 2. Compensatory Techniques: regular oral hygiene, upright positioning during PO intake, upright positioning 30 min after PO intake, elevate HOB to 30 degrees, alternate 2-3 bites with a sip of liquid, avoid restrictive clothing/belts.
--- NOTE | 2018-11-03 11:24 | Hospitalist Progress Note ---
Subjective Progress Notes Subjective 83F admitted for acute on chronic CHF. FANY overnight reports pain all over this am and desire to not continue fighting to live like this. Would ideally like to go home to live final days. Patient Complains of: Musculoskeletal: Pain Physical Exam Vital Signs Date Time Temp Pulse Resp B/P (MAP) Pulse Ox O2 Delivery O2 Flow Rate FiO2 11/03/18 06:45 97.7 67 12 139/88 (105) 94 Nasal Cannula 1.0 Intake and Output 11/03/18 07:00 Intake Total 200 ml Output Total 850 ml Balance -650 ml Intake Oral 200 ml IV Total 0 ml Output Urine Total 850 ml # Voids 5 General Appearance: Alert, Awake, Afebrile (moderate distress) Neuro: No Gross deficits Cardiovascular: Normal Rhythm & Peripheral Pulses Respiratory: Other (increased work of breathing, tolerates 1-2 words between breaths) GI: Soft and Non-Tender Musculoskeletal: Other (pain all over) Integumentary: Skin Intact without Lesion / Mass (red dusky hands and feet) Result Diagram: 11/03/1842 11/03/18541 Assessment and Plan Problems: (1) HFrEF (heart failure with reduced ejection fraction) Status: Acute Assessment & Plan: She presented with progressive weakness, worsening LE edema, worsening pleural effusions by CXR, hypoxic, elevated lactate and elevated BNP. Echo from September showed an EF 35-40%, global hypokinesis, moderate MR, severe TR, mild AR. Able to speak 1-2 words between breaths and using accessory muscles breathing. Patient voices desire to be comfortable but not seek further treatment and is hospice appropriate. Will work on end of life care and begin comfort cares only. TCN consulted. (2) Microcytic anemia Status: Chronic Assessment & Plan: Noted and stable since June. She has been iron defici ent and borderline folate deficient. Comfort cares only. (3) Swallowing difficulty Status: Acute Assessment & Plan: It is difficult to know how long she has struggled with swallowing. However, the day before admission, she struggled with matty ice cream. (4) Hypothyroid Status: Chronic Assessment & Plan: Hypothyroid in September. Supposedly on levothyroxine. TSH p ending (5) Aortic aneurysm Status: Chronic Exam Sepsis Risk: No Definite Risk ESCOBAR NOÉ AMADOR DO Nov 03, 2018 11:24
--- NOTE | 2018-11-03 11:29 | SLP EVALUATION SUMMARY REPORT ---
SPEECH THERAPY ASSESSMENT Bedside dysphagia evaluation Ordering Physician: Aneesh Gold MD Clinician: Katie Li MS, CCC-REFRIGERATION UNIT REPAIRER Type of Assessment: Bedside Dysphagia Evaluation Patient: Lalita Kenney : 33 Evaluation Date: 11/03/2018 BACKGROUND The patient is an 83 year old female admitted to [facility] with weakness, newly diagnosed heart failure. Her neighbor frequently checks on her, and reports increasing fatigue for two days leading up to hospitalization. An ST consult was requested for completion of a bedside swallow assessment secondary to reported swallowing difficulty, primarily to assist in developing diet modification recommendations and compensatory strategies to optimize comfort and quality of life associated with PO intake. Goals of care are evolving. Comfort measures being considered. Primary Medical Diagnosis: heart failure Pmhx: hypothyroidism, anemia Pain Scale (0-10): did not quantify; endorsed verbalized pain, declined medication, pt was repositioned with some relief LOC / Participation: Alert and cooperative. Follows instructions: Yes, no difficulty Orientation: A&O x4 Functional Communication Deficits impact swallow function/safety, or response to therapy: No DYSPHAGIA Sialorrhea: No Xerostomia: No Hygiene: WFL Supplemental Oxygen Use: 1.0 LPM via NC. COPD Dx: No. Pain with Swallow: Denies. Endorses frequent globus sensation at mid-sternum and suprasternal notch. Pt seen at the bedside for clinical swallowing assessment. Oral mechanism examination was unremarkable apart from edentulism. No dentures. Otherwise appropriate strength, ROM, coordination, and speed of all oral musculature. Hyolaryngeal elevation and excursion adequate to palpation. The pt was analyzed with PO trials of thin liquids via cup and straw; pureed, mechanically altered, advanced , and regular solids. Bolus breakdown was prolonged and incomplete with advanced and regular solids. The pt ultimately expectorated material. Pt reporting persistent sticking sensation, initially at the suprasternal notch with gradual movement towards the midsternal region. Consistent belching also noted immediately after swallow. Attempted use of double swallow, effortful swallow, chin tuck, alternation of liquids/solids, and alternation of consistencies. Liquid/solid and consistency alternation provided some relief. Other strategies largely unsuccessful. No overt signs of aspiration or other pharyngeal dysphagia observed. Discussed diet modification tiers at length with emphasis on optimized comfort and enjoyment for PO intake. Pt reporting preference for dysphagia II (mechanically altered) diet at this time to compensate for lacking dentition and to promote easier passage through the esophagus. Further discussed option to pursue objective analysis of the oropharyngeal swallow, and potential referral to a GI specialist. Goals of care continue to evolve, with likely transition to comfort measures. In this case, further objective assessment would not be recommended or appropriate. At this time, recommend mechanically altered solids per patient preference to optimize comfort and enjoyment associated with PO intake. Modifying diet may alleviate reported globus sensation and reduce level of effort required for swallowing. Suspect that dysphagia is primarily esophageal in nature. Discussed results and recommendations with the pt and RN. Written information re: compensatory swallow strategies, diet modification recommendations, and general aspiration/dysphagia education left at the bedside. ST ASSESSMENT SUMMARY Aspiration Risk: Mild. Negative prognostic indicators include compromised respiratory status and suspected esophageal dysphagia. HERNAN: Level 5, mild dysphagia with modification to solid textures largely secondary to reports of globus sensation and suspected esophageal dysphagia. Speech Therapy Need Further skilled ST interventions will be placed on hold at this time pending decision re: goals of care. Pt likely to transition to comfort measures. She would like to return home as soon as possible. RECOMMENDATIONS 1. Diet: mechanically altered solids to alleviate globus sensation, improve oral phase efficiency, and heighten comfort/enjoyment during PO intake; thin liquids. 2. Compensatory Techniques: regular oral hygiene, upright positioning during PO intake, upright positioning 30 min after PO intake, elevate HOB to 30 degrees, alternate 2-3 bites with a sip of liquid, avoid restrictive clothing/belts. 3. Supervision with meals/snacks: Not warranted. Thank you for this referral. Please do not hesitate to contact the ST department if change in status warrants re-evaluation. Katie Li M.S., [facility] [place]-REFRIGERATION UNIT REPAIRER Speech Therapist [*] ERIK
[2018-11-03 19:50] VITALS: BP 133/75
[2018-11-03] MEDS: IBUPROFEN 200 MG TAB PO PRN (20:00)
[2018-11-04] MEDS: MORPHINE 2 MG/ML SYR IV PRN ×5 (05:44→22:21)
[2018-11-04 06:48] VITALS: BP 131/83
--- NOTE | 2018-11-04 09:55 | Hospitalist Progress Note ---
Subjective Progress Notes Subjective This patient was admitted with advanced heart failure. She had no acute events overnight. Patient Complains of: Cardiovascular: No: Chest Pain Respiratory: Shortness of Breath Physical Exam Vital Signs Date Time Temp Pulse Resp B/P (MAP) Pulse Ox O2 Delivery O2 Flow Rate FiO2 11/04/18 06:48 98.1 73 18 131/83 (99) 90 Nasal Cannula 1.0 Intake and Output 11/04/18 07:00 Intake Total 1208 ml Balance 1208 ml Intake Oral 1208 ml # Voids 7 # Bowel Movements 1 Cardiovascular: Regular Rate and Rhythm Respiratory: Other (Labored.) Result Diagram: 11/03/18 0542 11/03/18 0542 Assessment and Plan Problems: (1) End of life care (2) HFrEF (heart failure with reduced ejection fraction) Status: Acute Assessment & Plan: She presented with progressive weakness, worsening edema, worsening pleural effusions. An echocardiogram from September showed an ejection fraction of 35-40%. She has elected comfort measures only. (3) Microcytic anemia Status: Chronic Assessment & Plan: Noted and stable since June. (4) Swallowing difficulty Status: Acute Assessment & Plan: She is on a modified diet. (5) Hypothyroid Status: Chronic (6) Aortic aneurysm Status: Chronic Exam Sepsis Risk: No Definite Risk DULCE MARIA JACOBS DO Nov 04, 2018 09:55
[2018-11-04 19:20] VITALS: BP 175/100
[2018-11-04] MEDS: IBUPROFEN 200 MG TAB PO PRN (19:37)
[2018-11-04 22:49] VITALS: BP 130/75
[2018-11-05 06:46] VITALS: BP 132/77
[2018-11-05] MEDS ORDERED: INFLUENZA VIRUS VAC 0.5ML SYR IM ONLY ONE (09:00)
--- NOTE | 2018-11-05 10:14 | Hospitalist Progress Note ---
Subjective Progress Notes Subjective The patient states her legs are numb from her buttocks down. This is new this am. Physical Exam Vital Signs Date Time Temp Pulse Resp B/P (MAP) Pulse Ox O2 Delivery O2 Flow Rate FiO2 11/05/18 06:46 98.1 70 12 132/77 (95) 90 Nasal Cannula 2.5 Intake and Output 11/05/18 07:00 Intake Total 738 ml Balance 738 ml Intake Oral 738 ml # Voids 4 General Appearance: Alert, Awake, Other (Can speak only in short sentences or a few words at a time due to increased work of breathing.) Neuro: Other (Decreased sensation of lower legs. Can wiggle toes. Can't lift legs off of the bed.) Cardiovascular: Regular Rate and Rhythm Respiratory: Other (Crackles anteriorly.) GI: Soft and Non-Tender Extremities: Warm, Pulses (Excellent DP pulses bilaterally LE.), Perfused Integumentary: Scaly / Dry Skin Psych: Appropriate Mood & Affect Result Diagram: 11/03/1842 11/03/18541 Assessment and Plan Problems: (1) End of life care Assessment & Plan: The patient has end stage CHF and has requested to have comfort care only. Her son talked with Dr. Palmer the evening of 11/04 and is traveling to [place]. The patient has new numbness/heaviness of her legs but does not want any work up at this time. (2) HFrEF (heart failure with reduced ejection fraction) Status: Acute Assessment & Plan: She presented with progressive weakness, worsening edema, worsening pleural effusions. An echocardiogram from September showed an ejection fraction of 35-40%. A repeat limited echo shows an estimated EF in the 20s. The actual report is pending. She has elected comfort measures only. (3) Microcytic anemia Status: Chronic Assessment & Plan: Noted and stable since June. (4) Swallowing difficulty Status: Acute Assessment & Plan: She is on a modified diet. (5) Hypothyroid Status: Chronic (6) Aortic aneurysm Status: Chronic Time Spent on Plan of Care: < 30 min Exam Sepsis Risk: No Definite Risk ASHLIE CRUZ MD Nov 05, 2018 10:14
--- NOTE | 2018-11-05 10:45 | Medical Nutrition Therapy ---
Nutrition Anthropometrics Height (Inches): 61.00 Height (Calculated Centimeters: 154.377768 Weight (Pounds): 96 Weight (Calculated Kilograms): 43.772 Guillermo Nutrition Score: Probably Inadequate Guillermo Nutrition Risk Score: 15 Dietary Referral Nutrition Risk Factors: Diff. Swallowing Nutrition Risk Comment: Decreased taste. Heart Failure Diet Nutritional Diagnosis Nutritional Risk Acuity 2: Swallowing Problem Nutritional Risk Acuity 4: Age Related Past Medical History: Heart Failure, Hyperthyroid, Microcytic Anemia Nutritional Acuity: 2-Moderate Nutrition Diagnosis: Swallowing Difficulties, Under-weight Nutrition Etiology: Physiological Causes, End of Life Care Nutrition Problem/Etiology/Sym: Underweight related to physiological causes as evidenced by low BMI (18.1) and swallowing difficulties. Energy Requirement: 1177 (MSJ, 1.1 TEF, 1.3 AF) Adjusted Energy Requirement Re: 1427 (+250kcal) Protein Requirement: 44 (1g AA/kg of BW) Fluid Requirement: 1427 (1ml/kcal of adusted energy requirement) Diet Type: Diet as Tolerated TREVOR/REG Nutrition Intervention: Cont diet as ordered Nutrition Monitoring & Eval Nutritional Goals Comment: Pt will consume food and fluids as appropriate for comfort care. RD Patient Assessment Time: [address] Assessment Type: RD Re-Assessment Patient Nutrition Acuity: 2-Moderate Follow Up Date: Nov 10, 2018 Nutritional Comment: 11/03: Pt admitted for HFrEF, anemia, swallowing difficulty, and aortic aneurysm. Pt hx Heart Failure, Hyperthyroid, Microcytic Anemia. Pt currently taking furosemide (diuretic). Pt has elevated BUN (25), AST (45), and b-natriuretic peptide (7075-0542). Pt has decreased RBG (61), calcium (8.2), iron (23), total protein (6), and albumin (2.7). Pt on heart failure diet with no intake reported. Offer nutritional supplement. Pt reported swallowing difficulties, recommend speech evaluation. Continue to montior and encourage intake, check serum K+. -CHANG 11/05 Pt was seen by [facility] with [facility] soft texture recommend for her swallowing difficulites. Pt has changed to Regular diet with comfort care. Will offer food and fluids as appropriate and as pt desires for comfort care. MAGGIE RODAS Nov 05, 2018 10:45
[2018-11-05] MEDS: MORPHINE 2 MG/ML SYR IV PRN ×2 (11:31→19:40)
[2018-11-05 19:20] VITALS: BP 156/103
--- NOTE | 2018-11-06 09:03 | Hospitalist Progress Note ---
Subjective Progress Notes Subjective Sedated/somnolent this AM. She did receive a dose of Ativan last evening. Physical Exam Vital Signs Date Time Temp Pulse Resp B/P (MAP) Pulse Ox O2 Delivery O2 Flow Rate FiO2 11/05/18 19:20 97 Nasal Cannula 2.5 11/05/18 19:20 84 20 156/103 (120) 11/05/18 06:46 98.1 Intake and Output 11/06/18 06:59 Intake Total 460 ml Balance 460 ml Intake Oral 460 ml # Voids 4 General Appearance: Other Cardiovascular: Other (Regular with systolic/diastolic murmur) Respiratory: Other (diminished at both bases) Extremities: Warm, Perfused Result Diagram: 11/03/1854111/03/18541 Assessment and Plan Problems: (1) End of life care Assessment & Plan: The patient has end stage CHF and has requested to have comfort care only. Her son talked with Dr. Palmer the evening of 11/04 and is currently traveling to [place]. Will have ECF evaluate for possible transfer to [facility] for end-of-life care. (2) HFrEF (heart failure with reduced ejection fraction) Status: Acute Assessment & Plan: She presented with progressive weakness, worsening edema, worsening pleural effusions. An echocardiogram from September showed an ejection fraction of 35-40%. A repeat limited echo shows an estimated EF in the mid 20% range. The actual report is still pending. She has elected comfort measures only. (3) Microcytic anemia Status: Chronic Assessment & Plan: Noted and stable since June. (4) Swallowing difficulty Status: Acute Assessment & Plan: She is on a modified diet. (5) Hypothyroid Status: Chronic (6) Aortic aneurysm Status: Chronic Exam Sepsis Risk: No Definite Risk JOVANNY CRUZ MD Nov 06, 2018 09:03
[2018-11-06] MEDS: MORPHINE 2 MG/ML SYR IV PRN ×2 (10:20→14:37)
--- NOTE | 2018-11-06 15:14 | Hospitalist Depart ---
Discharge Summary Reason for Hosp/Final Diag: (1) End of life care Hospital Course & Plan: The patient has end stage CHF and has requested to have comfort care only. Her son (he is currently travelling to [place]) talked with Dr. Palmer the evening of 11/04/18. They have decided to pursue end-of-life care in [facility]. Arrangements were made for transfer on 11/06/18. (2) HFrEF (heart failure with reduced ejection fraction) Status: Acute Hospital Course & Plan: She presented with progressive weakness, worsening edema, worsening pleural effusions. An echocardiogram from September showed an ejection fraction of 35-40%. A repeat limited echo shows an estimated EF in the mid 20% range. The final report is still pending. She has elected comfort measures only. (3) Microcytic anemia Status: Chronic Hospital Course & Plan: Stable since June. (4) Swallowing difficulty Status: Acute Hospital Course & Plan: She has been on a modified diet. Her oral intake has been minimal. (5) Hypothyroid Status: Chronic (6) Aortic aneurysm Status: Chronic Departure Weight (Pounds): 96 Weight (Ounces): 8.0 Result Diagram: 11/03/18 0542 11/03/18 0542 Item Value Date Time White Blood Count 3.5 k/uL L 11/02/18 1527 Hemoglobin 9.9 g/dL L 11/02/18 1527 Hematocrit 34.1 % 11/02/18 1527 Platelet Count 258 K/uL 11/02/18 1527 Sodium Level 143 mmol/L 11/02/18 1527 Potassium Level 4.1 mmol/L 11/02/18 1527 Chloride Level 110 mmol/L H 11/02/18 1527 Carbon Dioxide Level 24 mmol/L 11/02/18 1527 Blood Urea Nitrogen 25 mg/dl H 11/02/18 1527 Creatinine 0.80 mg/dl 11/02/18 1527 Glomerular Filtration Rate Calc > 60.0 11/02/18 1527 Random Glucose 82 mg/dl 11/02/18 1527 Calcium Level 8.5 mg/dl 11/02/18 1527 Total Bilirubin 0.8 mg/dl 11/02/18 1527 Aspartate Amino Transf (AST/SGOT) 72 U/L H 11/02/18 1527 Alanine Aminotransferase (ALT/SGPT) 51 U/L 11/02/18 1527 Alkaline Phosphatase 144 U/L H 11/02/18 1527 Troponin I 0.013 ng/ml 11/02/18 1527 Total Protein 7.1 g/dl 11/02/18 1527 Albumin 3.4 g/dl L 11/02/18 1527 Thyroid Stimulating Hormone (TSH) 10.50 uIU/ml H 11/03/18 0542 Folate >22.3 ng/mL 11/03/18 0542 Vitamin B12 Level 561 pg/mL 11/03/18 0542 Prealbumin 7.5 mg/dL L 11/03/18 0542 Albumin 2.7 g/dl L 11/03/18 0542 Total Protein 6.0 g/dl L 11/03/18 0542 B-Type Natriuretic Peptide 3390 pg/ml H 11/03/18 0542 B-Type Natriuretic Peptide 3690 pg/ml H 11/02/18 1527 Urine Mucus Few /HPF 11/02/18 1554 Urine Hyaline Casts Few /LPF 11/02/18 1554 Urine Bacteria Few /HPF 11/02/18 1554 Urine Squamous Epithelial Cells Few /LPF 11/02/18 1554 Urine WBC 1 /HPF 11/02/18 1554 Urine RBC 1 /HPF 11/02/18 1554 Urine Leukocyte Esterase Negative 11/02/18 1554 Urine Urobilinogen 4.0 mg/dL H 11/02/18 1554 Urine Bilirubin Negative 11/02/18 1554 Urine Nitrite Negative 11/02/18 1554 Urine Blood Negative 11/02/18 1554 Urine Ketones Negative mg/dL 11/02/18 1554 Urine Glucose (UA) Negative mg/dL 11/02/18 1554 Urine Protein 30 mg/dL 11/02/18 1554 Urine Specific Dixon 1.023 11/02/18 1554 Urine pH 5.0 pH 11/02/18 1554 Urine Clarity Slightly-cloudy 11/02/18 1554 Urine Color Elisas 11/02/18 1554 [facility] *LIVE* [address] [place] [address] СЕРГЕЙ KOROMA M.D., DIRECTOR OF LABORATORY SERVICES NOÉ GONZALES M.D., PATHOLOGIST RUN DATE: 11/06/18 Specimen Inquiry Report PAGE 1 RUN TIME: 1000 -- PATIENT: DEJA KENNEY ACCT: [id number] LOC: [facility] U: [id number] AGE/SX: 83/F ROOM: 2267 RE11/02/[address]: KILLIAN ANDERSON MD : 1935 BED: 267 DIS: STATUS: ADM IN TLOC: SPEC #: [id number] FRIDA: 11/02/18-UNK STATUS: RES REQ #: [id number] RECD: 11/02/18-[address]: FLORIAN KYLE [facility] SOURCE: BLOOD PER ENTR: 11/02/18-[address]: BLOSSOM ROMERO MD SPDESC: ORDERED: CULT BLOOD Procedure Result Verified BLOOD CULTURE Preliminary 11/06/18-1000 NO GROWTH AFTER 4 DAYS, [facility] [address] [facility] [place] [address] СЕРГЕЙ KOROMA M.D., DIRECTOR OF LABORATORY SERVICES NOÉ GONZALES M.D., PATHOLOGIST RUN DATE: 11/06/18 Specimen Inquiry Report PAGE 1 RUN TIME: 1000 PATIENT: DEJA KENNEY ACCT: [id number] LOC: MED U: [id number] AGE/SX: 83/F ROOM: [facility] RE11/02/[address]: KILLIAN ANDERSON MD : 1935 BED: 267 DIS: STATUS: ADM IN TLOC: SPEC #: [id number] FRIDA: 11/02/18-UNK STATUS: RES REQ #: [id number] RECD: 04/ SUBM DR: FLORIAN KYLE PIT CLERK-BC SOURCE: BLOOD PER ENTR: 11/02/18-[address]: BLOSSOM ROMERO MD [facility]: ORDERED: CULT BLOOD Procedure Result Verified BLOOD CULTURE Preliminary 11/06/18-1000 NO GROWTH AFTER 4 DAYS, REINCUBATED Imaging PATIENT NAME: Deja Kenney : 1935 MR: [id number] V: [id number] EXAM DATE: [id number] ORDERING PHYSICIAN: FLORIAN KYLE TECHNOLOGIST: Location: [facility] Patient: Deja Kenney : 1935 Visit/Account:[id number] Date of Sevice: 11/02/2018 Exam type: ACUTE ABDOMEN SERIES 3 VIEW History: RESP DISTRESS Comparison: Two view chest September 12, 2013. Findings: Moderate bilateral pleural effusions are slightly increased there is mild increased airspace consolidation in the lung bases consistent with infiltrates and/or atelectasis. Chronic interstitial changes are again noted throughout the lungs. There is cardiomegaly present that appears unchanged. Supine and upright views of the abdomen demonstrate a nonspecific bowel gas pattern. There is no free air beneath hemidiaphragms. Is a levoconvex scoliosis lumbar spine. Large calcified mass is noted within the pelvis which may represent a fibroid IMPRESSION: 1. Nonspecific bowel gas pattern Moderate bilateral pleural effusions have slightly increased since the prior 2018. There is increasing airspace consolidation lung bases consistent with atelectasis and or infiltrates Report Dictated By: Karyna Wu MD at 11/02/2018 4:44 PM Report E-Signed By: Karyna Wu MD at 11/02/2018 4:46 PM WSN:AMIROGELIOVAlessandra EKG PATIENT NAME: DEJA KENNEY : [id number] MR: [id number] V: [id number] EXAM DATE: ORDERING PHYSICIAN: FLORIAN KYLE TECHNOLOGIST: Test Reason : Chest pain Blood Pressure : / mmHG Vent. Rate : 085 BPM Atrial Rate : 085 BPM P-R Int : 218 ms QRS Dur : 078 ms QT Int : 386 ms P-R-T Axes : 027 017 040 degrees QTc Int : 459 ms Sinus rhythm with 1st degree AV block R wave progression consistent with old ant/sep NM vs lead placement When compared with ECG of 12-SEP-2018 13:45, Now with poor R wave progression, but previous ECG has baseline artifact Confirmed by KILLIAN ANDERSON ([id number]) on 11/02/2018 9:12:21 PM Referred By: Confirmed By:KILLIAN ANDERSON Condition: No Change Discharge: [facility] ([facility]) Time Spent: > 30 min Discharge Instructions Home Meds Active Scripts Metoprolol Succinate (METOPROLOL SUCCINATE) 25 Mg Tab.er.24h, 12.5 MG PO DAILY for 90 Days, #45 TAB Prov:NOÉ FORREST DO 09/14/18 Furosemide (FUROSEMIDE) 20 Mg Tablet, 1 TAB PO DAILY for 90 Days, #90 TAB Prov:NOÉ FORREST DO 09/14/18 Levothyroxine Sodium (LEVOTHYROXINE SODIUM) 50 Mcg Tablet, 0.05 MG PO QDAY@06 for 90 Days, #90 TAB Prov:NOÉ FORREST DO 09/14/18 Diet: Regular Activity: As Tolerated Special Instructions: She will be transferred to [facility] for end-of-life care. Copies to: BLOSSOM ROMERO MD ; Venous Thromboembolism Antithrombotics Is Pt On Any Antithrombotics?: No JOVANNY CRUZ MD Nov 06, 2018 15:14
== END 2018-11-06 16:30 | DRG 292 ==
LOC: ER 15:11 → MED 17:30
PROVIDERS: ADMIT Internal Medicine; ATTEND Internal Medicine
DX: I50.23 Acute on chronic systolic (congestive) heart failure (principal); Z68.1 Body mass index [BMI] 19.9 or less, adult; D50.9 Iron deficiency anemia, unspecified; R13.10 Dysphagia, unspecified; E03.9 Hypothyroidism, unspecified; I71.9 Aortic aneurysm of unspecified site, without rupture; I50.84 End stage heart failure; R63.6 Underweight
CPT/HCPCS: 36415; 74022; 81001; 82040; 82247; 82310; 82374; 82435; 82565; 82607; 82746; 82947; 83540; 83550; 83605; 83880; 84075; 84132; 84134; 84155; 84295; 84443; 84450; 84460; 84484; 84520; 85025; 87040; 93005; 93308; 96374; 99285; A4353; J1940; J2060; J2270

== ENCOUNTER 2018-11-06 14:55 | Inpatient (IN) | payer MEDICARE, OTHER ==
[2018-11-03 08:25] VITALS: Ht 157.5 cm; Wt 37.6 kg
[~2018-11-06] VITALS: Ht 157.5 cm; Wt 37.6 kg
--- NOTE | 2018-11-06 15:19 | ECF H&P BLANK ---
ECF H&P UPDATE History of Present Illness History of Present Illness 83yo female with a h/o HFrEF and hypothyrodism who was brought to the ER for weakness. The history is from the patient (difficult historian) and the ER provider. She was in the hospital about 2 months ago for newly diagnosed heart failure. She has a neighbor who checks in on her. 2 days ago, the neighbor took her on some errands and the patient fatigued very easily compared to baseline. Today, the neighbor checked in and the patient was unable to walk because of global weakness. She also has had difficulty swallowing matty ice cream, yesterday. The patient denies orthopnea, but does have LE edema. Apparently, there is some concern about whether the patient is taking her medications. History Problems: (1) Heart failure Status: Chronic (2) Microcytic anemia Status: Chronic (3) Hypothyroid Status: Chronic Home Meds Active Scripts Metoprolol Succinate (METOPROLOL SUCCINATE) 25 Mg Tab.er.24h, 12.5 MG PO DAILY for 90 Days, #45 TAB Prov:ESCOBAR PERRYNOÉ 09/14/18 Furosemide (FUROSEMIDE) 20 Mg Tablet, 1 TAB PO DAILY for 90 Days, #90 TAB Prov:ESCOBAR PERRYNOÉ 09/14/18 Levothyroxine Sodium (LEVOTHYROXINE SODIUM) 50 Mcg Tablet, 0.05 MG PO QDAY@06 for 90 Days, #90 TAB Prov:NOÉ FORREST DO 09/14/18 Allergies: Coded Allergies: No Known Drug Allergies (Unverified , 06/14/18) Patient History: FH: cataracts MOTHER, Other Social/Family Hx . Lives alone. Son in [place]. No tobacco or alcohol use. Hx Smoking: No Smoking Status: Never Smoker Hx Alcohol Use: No Hx Substance Use Disorder: No Social Drug Use: Never Review of Systems All Systems Reviewed/Normal: Yes, Except as Noted Exam Vital Signs Vital Signs Date Time Temp Pulse Resp B/P (MAP) Pulse Ox O2 Delivery O2 Flow Rate FiO2 11/02/18 18:20 98.2 74 20 149/113 (125) 91 Oxy Mask 2.0 General Appearance: Alert, Awake, No Acute Distress (cachectic appearing) Eyes: PERRLA ENT: Other (tacky mm) Cardiovascular: Regular Rate and Rhythm (2/6 sys on lsb) Respiratory: Other (insp crackles in the left base) GI: Abd Soft and Non-Tender Extremities: Edema (1-2+ pitting to knees bilaterally) Integumentary: No Jaundice, No Cyanosis Medical Decision Making Data Points Result Diagram: 11/02/18 1527 11/02/18 1527 Item Value Date Time Hemoglobin 9.0 g/dL *L 09/14/18 0546 Hemoglobin 9.9 g/dL L 11/02/18 1527 White Blood Count 3.5 k/uL L 11/02/18 1527 White Blood Count 3.9 k/uL L 09/14/18 0546 Mean Corpuscular Volume 71.9 fL L 09/14/18 0546 Mean Corpuscular Volume 77.0 fL L 11/02/18 1527 Red Cell Distribution Width 24.2 % H 09/14/18 0546 Red Cell Distribution Width 27.4 % H 11/02/18 1527 Neutrophils % (Manual) 42 % 11/02/18 1527 Band Neutrophils % 1 % 11/02/18 1527 Lymphocytes % (Manual) 43 % 11/02/18 1527 Monocytes % (Manual) 13 % H 11/02/18 1527 Eosinophils % (Manual) 0 % L 11/02/18 152 EKG / Imaging EKG Interpretation NSR. No ST-T abnormalities. Difficult to compare to previous because of previous wandering baseline. Imaging 3 way of abdomen - 1. Nonspecific bowel gas pattern Moderate bilateral pleural effusions have slightly increased since the prior 2018. There is increasing airspace consolidation lung bases consistent with atelectasis and or infiltrates Assessment and Plan Problems: (1) HFrEF (heart failure with reduced ejection fraction) Status: Acute Assessment & Plan: She presented with progressive weakness, worsening LE edema, worsening pleural effusions by CXR, hypoxic, elevated lactate and elevated BNP. Echo from September showed an EF 35-40%, global hypokinesis, moderate MR, severe TR, mild AR. There is concern of non-compliance with medications and ability to thrive at home. She will be started on IV Lasix tomorrow at 20mg bid. She is now on O2. Recheck lactate and BNP in the morning with O2 use. OT/PT to evaluate. TCN consulted. (2) Microcytic anemia Status: Chronic Assessment & Plan: Noted and stable since June. She has been iron deficient and borderline folate deficient. Repeat labs tomorrow and check for occult blood in stools. Start iron sulfate 325mg every other day with vitamin C. (3) Swallowing difficulty Status: Acute Assessment & Plan: It is difficult to know how long she has struggled with swallowing. However, the day before admission, she struggled with matty ice cream. Will ask ST to evaluate. Because of her low body fat, difficulty swallowing and concern about her ability to manage at home; will check a prealbumin. (4) Hypothyroid Status: Chronic Assessment & Plan: Hypothyroid in September. Supposedly on levothyroxine. Recheck TSH. (5) Aortic aneurysm Status: Chronic Venous Thromboembolism Antithrombotics Is Pt On Any Antithrombotics?: No Exam Sepsis Risk: No Definite Risk KILLIAN ANDERSON MD Nov 02, 2018 20:03 <Electronically signed by KILLIAN ANDERSON MD> D/ 02 02 02 PETELAJOSE/REBECCA CC: Mrs. Kenney will be admitted to [facility] for end-of-life care. JOVANNY CRUZ MD Nov 06, 2018 15:19
[2018-11-06] MEDS ORDERED: FLUSH 10 ML SYR IVP PRN (16:50)
[2018-11-06] MEDS ORDERED: LORazepam 2 MG/ML VIAL IV PRN (17:00)
[2018-11-06] MEDS ORDERED: PATCH REMOVAL 1 EA TP PRN (17:00)
[2018-11-06] MEDS ORDERED: ACETAMINOPHEN 500 MG TAB PO PRN (17:00)
[2018-11-06] MEDS ORDERED: MORPHINE 2 MG/ML SYR IV PRN (17:00)
[2018-11-06 17:37] VITALS: BP 135/86
--- NOTE | 2018-11-06 17:53 | NUR ---
Pt's wishes At 1830 hours this RN found patient restless and went to get some Ativan. Pt was found with nasal cannula off and pt's O2 sats 74% on RA. Pt woke up as O2 was re-placed. She has several wishes. If her son arrives after she dies, she wants him to be told, "Take care of yourself." She wants to be left "alone with Buddha." She refused offer to find a Evangelical gear shaper set up operator (there used to be a gear shaper set up operator at the [facility] who was Evangelical, but I do not know if she is still there). She wants to . She wants her oxygen off. I asked her if we could keep it on until her son arrives, as he is supposed to arrive around 8 pm tonight, so that she could be alive until then. She said, "Whatever." She denied having pain, said, "it's mostly numbness, not really pain."
[2018-11-07] MEDS: MORPHINE 2 MG/ML SYR IV PRN ×3 (05:10→13:42)
[2018-11-07] MEDS ORDERED: LORazepam 2 MG/ML VIAL IM PRN (14:50)
[2018-11-07] MEDS: MORPHINE 2 MG/ML SYR SC PRN ×2 (17:52→20:36)
--- NOTE | 2018-11-08 09:54 | Medical Nutrition Therapy ---
Nutrition Anthropometrics Height (Inches): 62.00 Height (Calculated Centimeters: [phone] Weight (Pounds): 96 Guillermo Nutrition Score: Probably Inadequate Guillermo Nutrition Risk Score: 12 Dietary Referral Nutrition Risk Factors: Diff. Swallowing Nutrition Risk Comment: Pt here for end of life care, is not eating. Nutritional Diagnosis Nutritional Risk Acuity 2: Swallowing Problem Nutritional Risk Acuity 4: Age Related Past Medical History: Heart Failure, Hyperthyroid, Microcytic Anemia Nutrition Diagnosis: Inadequate Food Intake Nutrition Etiology: End of Life Care Energy Requirement: 1425 (MSJ) Protein Requirement: 44 (1gm/kg) Fluid Requirement: 1425 Diet Type: Diet as Tolerated TREVOR/REG Nutrition Intervention: Cont diet as ordered Nutrition Monitoring & Eval Nutritional Goals Comment: Pt will consume food and fluids as appropriate for end of life care. RD Patient Assessment Time: [address] Assessment Type: RD Assessment Patient Nutrition Acuity: 2-Moderate Follow Up Date: Nov 14, 2018 Nutritional Comment: 11/08 Pt admitted for end of life care. Nursing reported pt is unresponsive most of the time. Nursing providing foods and fluids as appropriate for end of life care. Will cont to monitor. MAGGIE RODAS Nov 08, 2018 09:54
[2018-11-08] MEDS: MORPHINE 2 MG/ML SYR SC PRN ×2 (10:02→18:51)
--- NOTE | 2018-11-08 15:42 | Hospitalist Progress Note ---
Subjective Progress Notes Subjective The patient has been confused at times. She has some chest pain. Physical Exam Vital Signs Date Time Temp Pulse Resp B/P (MAP) Pulse Ox O2 Delivery O2 Flow Rate FiO2 11/08/18 13:56 66 Room Air 11/08/18 06:00 102 11/07/18 02:50 2.0 96.0 11/06/18 17:37 98.2 20 135/86 (102) Intake and Output 11/08/18 07:00 Intake Total 20 ml Balance 20 ml Intake Oral 20 ml # Voids 3 General Appearance: Alert, Awake, Other (Increased work of breathing.) Neuro: Other (Confused at times.) Eyes: PERRLA Cardiovascular: Other (Tachy, regular.) Respiratory: Other (Crackles anteriorly.) GI: Soft and Non-Tender Extremities: Pulses (Full and equal DP.) Integumentary: Scaly / Dry Skin Psych: Appropriate Mood & Affect Assessment and Plan Problems: (1) End of life care Status: Acute Assessment & Plan: The patient has CHF and her EF has decreased. She has elected to have comfort care only. Will continue comfort measures. The patient's son is here today and is agreeable with the plan. She is not wearing her oxygen and her saturations have been low. Suspect she will decline due to hypoxia over the next few days. Time Spent on Plan of Care: < 30 min ASHLIE CRUZ MD Nov 08, 2018 15:42
--- NOTE | 2018-11-08 18:53 | NUR ---
patient found trying to get out of bed without calling. She is confused and oriented only to self at this point. Bed alarm on to ensure safety of patient. Alarm will only be used when son is out of room. Reoriented to call light and light is within reach.
[2018-11-08] MEDS: LIDOCAINE 5% PATCH TP SCH (20:17)
[2018-11-09] MEDS: PATCH REMOVAL 1 EA TP SCH (09:00)
[2018-11-09] MEDS: MORPHINE 2 MG/ML SYR SC PRN (09:43)
[2018-11-09] MEDS ORDERED: diphenhydrAMINE 25 MG CAP PO ONE (10:40)
[2018-11-09] MEDS ORDERED: LIDOCAINE/SOD BICARB 8.4% SYR ID ONE (11:20)
[2018-11-09] MEDS: SCOPOLAMINE 1.5 MG PATCH TD PRN (12:33)
[2018-11-09] MEDS: MORPHINE 4 MG/ML SDV IVP PRN ×2 (12:51→17:42)
[2018-11-09] MEDS: LIDOCAINE 5% PATCH TP SCH (21:00)
[2018-11-10] MEDS: PATCH REMOVAL 1 EA TP SCH (09:08)
[2018-11-10] MEDS: MORPHINE 2 MG/ML SYR IVP PRN ×2 (14:13→17:25)
[2018-11-10] MEDS: LORazepam 2 MG/ML VIAL IVP PRN (20:22)
[2018-11-10] MEDS: LIDOCAINE 5% PATCH TP SCH (20:57)
[2018-11-11] MEDS: LORazepam 2 MG/ML VIAL IVP PRN ×2 (01:12→15:48)
[2018-11-11] MEDS: MORPHINE 2 MG/ML SYR IVP PRN (01:13)
[2018-11-11] MEDS: PATCH REMOVAL 1 EA TP SCH (09:00)
[2018-11-11] MEDS: LIDOCAINE 5% PATCH TP SCH (21:45)
[2018-11-12] MEDS: MORPHINE 2 MG/ML SYR IVP PRN ×4 (05:39→19:15)
[2018-11-12] MEDS: PATCH REMOVAL 1 EA TP SCH (09:00)
[2018-11-12] MEDS: SCOPOLAMINE 1.5 MG PATCH TD PRN (17:11)
[2018-11-12] MEDS: LIDOCAINE 5% PATCH TP SCH (21:26)
[2018-11-12] MEDS: LORazepam 2 MG/ML VIAL IVP PRN (21:32)
[2018-11-13] MEDS: PATCH REMOVAL 1 EA TP SCH (08:41)
[2018-11-13] MEDS: LORazepam 2 MG/ML VIAL IVP PRN ×2 (10:42→22:58)
[2018-11-13] MEDS: MORPHINE 2 MG/ML SYR IVP PRN (13:02)
--- NOTE | 2018-11-13 13:53 | Medical Nutrition Therapy ---
Nutrition Anthropometrics Height (Inches): 62.00 Height (Calculated Centimeters: 157.274223 Weight (Pounds): 96 Guillermo Nutrition Score: Very Poor Guillermo Nutrition Risk Score: 12 Dietary Referral Nutrition Risk Factors: Diff. Swallowing Nutrition Risk Comment: Pt here for end of life care, is not eating. Nutrition/Food History Difficulty Swallowing Nutritional Diagnosis Nutritional Risk Acuity 2: Swallowing Problem Nutritional Risk Acuity 4: Age Related Past Medical History: Heart Failure, Hyperthyroid, Microcytic Anemia Nutritional Acuity: 2-Moderate Nutrition Diagnosis: Inadequate Food Intake Nutrition Etiology: End of Life Care Nutrition Problem/Etiology/Sym: AEB pt not eating meals Energy Requirement: 1425 (MSJ) Protein Requirement: 44 (1gm/kg) Fluid Requirement: 1425 Diet Type: Diet as Tolerated TREVOR/REG Nutrition Intervention: Cont diet as ordered Nutrition Monitoring & Eval Nutritional Goals Comment: pt will consume food nd fluids as appropriate for end of life care RD Patient Assessment Time: [address] Assessment Type: RD Re-Assessment Patient Nutrition Acuity: 2-Moderate Follow Up Date: Nov 21, 2018 Nutritional Comment: 11/08 Pt admitted for end of life care. Nursing reported pt is unresponsive most of the time. Nursing providing foods and fluids as appropriate for end of life care. Will cont to monitor. JOSÉ MIGUEL 11/13 Pt cont on comfort care. Pt is on regular diet but not taking any meals. Nursing providing food and fluids as appropriate. Will cont to monitor. MAGGIE RODAS Nov 13, 2018 13:52
[2018-11-13] MEDS: LIDOCAINE 5% PATCH TP SCH (21:16)
[2018-11-14] MEDS: LORazepam 2 MG/ML VIAL IVP PRN (06:00)
[2018-11-14] MEDS: PATCH REMOVAL 1 EA TP SCH (09:00)
[2018-11-14] MEDS: MORPHINE 2 MG/ML SYR IVP PRN ×3 (14:33→20:36)
[2018-11-14] MEDS: LIDOCAINE 5% PATCH TP SCH (20:20)
[2018-11-15] MEDS: MORPHINE 2 MG/ML SYR IVP PRN ×3 (05:14→19:59)
[2018-11-15] MEDS: PATCH REMOVAL 1 EA TP SCH (09:00)
--- NOTE | 2018-11-15 12:56 | Hospitalist Progress Note ---
Subjective Progress Notes Subjective She states "I am comfortable". She has no complaints at this time. Physical Exam Vital Signs Date Time Temp Pulse Resp B/P (MAP) Pulse Ox O2 Delivery O2 Flow Rate FiO2 11/15/18 08:15 Room Air 11/15/18 01:09 83 11/12/18 07:30 14 Intake and Output 11/15/18 01:00 Intake Total 200 ml Balance 200 ml Intake Oral 100 ml Other 100 ml # Voids 4 # Bowel Movements 4 General Appearance: Alert, Awake, No Acute Distress Neuro: No Gross deficits Respiratory: No Respiratory Distress GI: Soft and Non-Tender Extremities: Edema (2+ pitting edema to bilateral lower extremities) Psych: Appropriate Mood & Affect Assessment and Plan Problems: (1) End of life care Status: Acute Assessment & Plan: The patient has CHF and her EF has decreased. She has elected to have comfort care only. Will continue comfort measures. The patient's son is agreeable with the plan. She is not wearing her oxygen and her saturations have been low. Suspect she will decline due to hypoxia. AUGUSTINE MARINO INDIRECT FIRE INFANTRYMAN Nov 15, 2018 12:55
[2018-11-15] MEDS: LIDOCAINE 5% PATCH TP SCH (20:26)
[2018-11-15] MEDS: LORazepam 2 MG/ML VIAL IVP PRN (21:15)
[2018-11-16] MEDS: MORPHINE 2 MG/ML SYR IVP PRN ×3 (02:54→19:33)
[2018-11-16] MEDS: LORazepam 2 MG/ML VIAL IVP PRN (02:55)
[2018-11-16] MEDS: SCOPOLAMINE 1.5 MG PATCH TD PRN (06:18)
[2018-11-16] MEDS: PATCH REMOVAL 1 EA TP SCH (09:00)
[2018-11-16] MEDS ORDERED: LIDOCAINE/SOD BICARB 8.4% SYR ID ONE (13:30)
[2018-11-16] MEDS: LIDOCAINE 5% PATCH TP SCH (19:34)
[2018-11-17] MEDS: LORazepam 2 MG/ML VIAL IVP PRN ×2 (01:20→21:42)
[2018-11-17] MEDS: MORPHINE 2 MG/ML SYR IVP PRN ×3 (01:20→17:28)
[2018-11-17] MEDS: PATCH REMOVAL 1 EA TP SCH (09:00)
[2018-11-17] MEDS: LIDOCAINE 5% PATCH TP SCH (21:41)
[2018-11-18] MEDS: PATCH REMOVAL 1 EA TP SCH (09:00)
[2018-11-18] MEDS: LIDOCAINE 5% PATCH TP SCH (20:55)
[2018-11-18] MEDS: MORPHINE 2 MG/ML SYR IVP PRN (23:59)
[2018-11-19 07:15] VITALS: BP 146/87
[2018-11-19] MEDS: PATCH REMOVAL 1 EA TP SCH (09:00)
[2018-11-19] MEDS: MORPHINE 2 MG/ML SYR IVP PRN ×2 (15:30→16:33)
[2018-11-19] MEDS: LORazepam 2 MG/ML VIAL IVP PRN (17:08)
--- NOTE | 2018-11-19 17:47 | NUR ---
Pt anxiety This morning pt ate a large breakfast, for her. She ordered a mushroom, olive, and green pepper omelet, a bowl of strawberries, two pieces of han, and a serving of apple juice. She probably ate about half of it, then slept hard, not waking during three repositionings. She woke up about 1520 hours and this RN found her restless in bed. She told me that she hurt "everywhere!" but especially her abdomen hurt, and she wanted some medicine. I gave her morphine; about 50 minutes later she appeared much more relaxed, but she complained that she still hurt everywhere and that the medicine hadn't helped. I gave her morphine 2mg again. Then she started talking about being worried about lingering. She said she had been SURE this morning that she was about to , is why she ate all that food. She said she wants to quickly. I asked her if I could give her some medicine that would help her quit worrying, and she said yes. Then I gave her Ativan 1mg IVP, which finally helped her to relax and sleep.
[2018-11-19] MEDS: LIDOCAINE 5% PATCH TP SCH (21:17)
[2018-11-20] MEDS ORDERED: MAGNESIUM HYDROXIDE* 30ML UDCP PO PRN (06:40)
[2018-11-20 07:20] VITALS: BP 140/89
[2018-11-20] MEDS: PATCH REMOVAL 1 EA TP SCH (09:00)
[2018-11-20] MEDS: DOCUSATE SODIUM 100 MG CAP PO SCH ×2 (09:33→20:18)
--- NOTE | 2018-11-20 09:43 | NUR ---
Spoke with son Ksenia to discuss improvement noted in resident's alertness, appetite and mobility. Will discuss the case with the hospitalist regarding her status and need to evaluate skill care versus hospice care. Son is concerned because he states on Tuesday his mom was adamant about going home which he knows isn't ideal because she doesn't want anyone in her home caring for her. Will care plan with MD and evaluate options with resident and son.
--- NOTE | 2018-11-20 11:46 | Medical Nutrition Therapy ---
Nutrition Anthropometrics Height (Inches): 62.00 Height (Calculated Centimeters: [phone] Weight (Pounds): 96 Guillermo Nutrition Score: Very Poor Guillermo Nutrition Risk Score: 12 Dietary Referral Nutrition Risk Factors: Diff. Swallowing Nutrition Risk Comment: Pt here for end of life care, is not eating. Nutritional Diagnosis Nutritional Risk Acuity 2: Swallowing Problem Nutritional Risk Acuity 4: Age Related Past Medical History: Heart Failure, Hyperthyroid, Microcytic Anemia Nutritional Acuity: 2-Moderate Nutrition Diagnosis: Inadequate Food Intake Nutrition Etiology: End of Life Care Nutrition Problem/Etiology/Sym: AEB pt eaiting 0-50% of meals. Energy Requirement: 1425 (MSJ) Protein Requirement: 44 (1gm/kg) Fluid Requirement: 1425 Diet Type: Diet as Tolerated TREVOR/REG Nutrition Intervention: Cont diet as ordered Nutrition Monitoring & Eval Nutritional Goals Comment: Pt will consume food and fluids as appropriate for comfort care RD Patient Assessment Time: [address] Assessment Type: RD Re-Assessment Patient Nutrition Acuity: 2-Moderate Follow Up Date: Nov 28, 2018 Nutritional Comment: 11/08 Pt admitted for end of life care. Nursing reported pt is unresponsive most of the time. Nursing providing foods and fluids as appropriate for end of life care. Will cont to monitor. JOSÉ MIGUEL 11/13 Pt cont on comfort care. Pt is on regular diet but not taking any meals. Nursing providing food and fluids as appropriate. Will cont to monitor. JOSÉ MIGUEL 11/20 Pt cont on comfort care. Pt is on regular diet and eating 0-50% of most meals. Nursign cont to report swallowing problems. Will cont to monitor. MAGGIE RODAS Nov 20, 2018 11:46
[2018-11-20] MEDS: LIDOCAINE 5% PATCH TP SCH (20:18)
[2018-11-21 07:40] VITALS: BP 111/89
[2018-11-21] MEDS: PATCH REMOVAL 1 EA TP SCH (08:25)
[2018-11-21] MEDS: DOCUSATE SODIUM 100 MG CAP PO SCH ×2 (10:19→20:54)
--- NOTE | 2018-11-21 10:30 | NUR ---
Long conversation with resident discussing end of life and where she may elect to go. Since she has shown an improvement and is no longer requiring IV medication to manage her symptoms, a [facility] facility may not be the best place for her. She voices that she wants to just go home. The need for 24 hour assistance discussed and she stated she knows she "probably" needs help. Discussed [facility] as an option. She had questions which I was unable to answer and attempted to get permission to have someone from Hospice to talk to her. As the conversation continued she seemed to become frustrated, left her to think about things and I would return to talk some more later. She wanted to talk to the doctor to find out why "this is taking so long". Dr. Laureen Duval will be here tomorrow.
--- NOTE | 2018-11-21 15:13 | NUR ---
Received call from Ksenia, son. He and his mother, the resident, had a conversation on the phone and she has agreed to go to Hospice. WILIAN Young notified and she will make a referral this afternoon.
[2018-11-21 17:00] VITALS: BP 110/80
[2018-11-21] MEDS: LIDOCAINE 5% PATCH TP SCH (20:53)
[2018-11-22] MEDS: PATCH REMOVAL 1 EA TP SCH (09:41)
[2018-11-22] MEDS: DOCUSATE SODIUM 100 MG CAP PO SCH ×2 (09:41→20:17)
--- NOTE | 2018-11-22 14:44 | Hospitalist Progress Note ---
Subjective Progress Notes Subjective The patient says she has pain from head to toe. She is afraid to eat or drink because her swallowing is not good. Physical Exam Vital Signs Date Time Temp Pulse Resp B/P (MAP) Pulse Ox O2 Delivery O2 Flow Rate FiO2 11/22/18 03:00 90 Room Air 11/21/18 17:00 97.2 72 20 110/80 (90) Intake and Output 11/22/18 07:00 Intake Total 360 ml Balance 360 ml Intake Oral 360 ml # Voids 5 # Bowel Movements 3 General Appearance: Alert, Awake, No Acute Distress, Afebrile Neuro: Other (A bit confused at times.) Cardiovascular: Other (Tachy, regular.) Respiratory: Clear to Auscultation (Anteriorly.) GI: Soft and Non-Tender, Other (BS+.) Extremities: Warm, Perfused Psych: Appropriate Mood & Affect Assessment and Plan Problems: (1) End of life care Status: Acute Assessment & Plan: The patient has CHF and her EF has decreased. She has elected to have comfort care only. Although she has a terminal diagnosis, she has improved somewhat since admission to [facility]. She is not eating or drinking well however, and is not likely to live long. The patient has agreed to go to the [facility] for ongoing care. The patient's son is agreeable with the plan. Hospice has been consulted to evaluate the patient Time Spent on Plan of Care: < 30 min ASHLIE CRUZ MD Nov 22, 2018 14:44
[2018-11-22] MEDS: LIDOCAINE 5% PATCH TP SCH (20:03)
[2018-11-23] MEDS: DOCUSATE SODIUM 100 MG CAP PO SCH ×2 (09:00→20:30)
[2018-11-23] MEDS: PATCH REMOVAL 1 EA TP SCH (09:00)
--- NOTE | 2018-11-23 10:04 | NUR ---
PT eval order received as the pt has expressed desire to d/c home. PT evaluation attempted, pt reports that she would like "a free day" and declines all mobility at this time despite PT efforts. Plan to eval at later date as appropriate and pending pt's wishes.
--- NOTE | 2018-11-23 12:59 | NUR ---
Resident is adamantly stating she won't go to Hospice, she is going home. PT/OT ordered this morning in an attempt to evaluate resident's ability to independently move. She is refusing evaluation or any therapy. "It's my life, I can do what I want. It's none of your concern". Hospice was here to do an evaluation. Son, Ksenia contacted, message left for him to return call so a plan can be developed.
--- NOTE | 2018-11-23 14:23 | NUR ---
Occupational Therapy Impression Pt. refusing to participate in any therapy this date stating, "I need a free card today." Pt. denied having to use the restroom and refused participation in all grooming/ ADL activities. Pt. only participated in subjective evaluation. Plan of care and Goals will be written when pt. agrees to participate in mobility/ ADL activities. Occupational Therapy Goals Patient's Goal
[2018-11-23 17:00] VITALS: BP 141/87
[2018-11-23] MEDS: LIDOCAINE 5% PATCH TP SCH (20:29)
--- NOTE | 2018-11-23 22:32 | NUR ---
patient calling out for staff tonight. encouraged to use call light. Lalita has a history of trying to get out of bed without calling. She is not able to bear weight and ambulate at this time. Bed alarm in use for patient safety.
[2018-11-24] MEDS: PATCH REMOVAL 1 EA TP SCH (09:00)
[2018-11-24] MEDS: DOCUSATE SODIUM 100 MG CAP PO SCH ×2 (09:09→21:00)
--- NOTE | 2018-11-24 09:14 | NUR ---
Spoke with son, Ksenia last evening, he does not know what to do. He reports that his mom isn't listening to him and is insisting on going home. Contacted DFS, Adult Protective Services, WILIAN Pennington. He stated that if she is competent, even though her decisions aren't what we believe is in her best interest, she has the right to make these decisions.
--- NOTE | 2018-11-24 09:37 | NUR ---
Discussed with resident and she still wants to go home, explained AMA discharge and she would have to make all of the arrangements. Explained the Advance Beneficiary Notice of Non Coverage since no skilled services are being utilized. Refused to sign at this time. sKenia, son made aware of the situation and he states no one will help her get home under these circumstances. Assured we will continue to care for her, work on independence as much as she will allow us.
--- NOTE | 2018-11-24 11:30 | NUR ---
Resident continues to attempt to find a ride home. Laureen Guerrero, RN asked her to show us she could get out of bed, which she proceeded to do, reaching for chairs and "surfing" furniture approximately 5 feet to the bedside commode. Praised for her efforts and ability. Presented plan to have therapy work with her to help get her stronger to be successful at home. Laureen Gold OT came into room and worked with her, she walked into the hallway. Celebrated her steps and hard work!! She stated she would work, get stronger and then go to her home to .
--- NOTE | 2018-11-24 13:08 | NUR ---
Ksenia, son notified of his mom's willingness to work with therapy and progress. He respects her decision to go home, but would like her to be able to at least walk around her house. We will continue to focus on the goal of going home safely.
--- NOTE | 2018-11-24 14:14 | NUR ---
Physical Therapy Impression Attempted PT eval, Pt sleeping and nursing requesting to allow Pt to sleep. Pt was able to ambulate with OT earlier today. Will attempt at later time. Physical Therapy Goals Patient's Goals
--- NOTE | 2018-11-24 15:19 | NUR ---
Occupational Therapy Impression Pt. ambulated 15 feet with use of FWW and close follow of w/c with Max A x2. Pt. very retropulsive during ambulation activity requiring multiple verbal cues to stand up straight. Pt. required Max A x2 to perform toileting activities. Continue with POC. Occupational Therapy Goals 1. Pt. to perform dressing activities with Min A. 2. Pt. to perform showering activities with Min A. 3. Pt. to perform toileting activities with Min A. 4. Pt. to increase Wilfred Index of ADL score by 2 points. Patient's Goal
[2018-11-24 15:30] VITALS: BP 154/90
--- NOTE | 2018-11-24 15:35 | OT ECF NOTE ---
Type of Note: Initial Note Primary Medical Diagnosis: Heart failure Occupational Therapy Evaluation Date: 11/23/18 SUBJECTIVE: Prior Hospitalization: Pt. was on [facility] medical floor from 11/02/18 till 11/06/18. Prior Level of Function: Pt. was Independent prior to [facility] medical admission. Prior Living Status: Bi-level house Community Services: Home Accessibility: Stairs with rails Equipment Owned: Medical Complications/Past Medical History: Please refer to chart for details. Psychosocial Support: Supportive neighbor Pain Scale (0-10): None stated OBJECTIVE: Strength: MMT: Right Left Shoulder Flexion [*] [*] Elbow Flexion [*] [*] Wrist Extension [*] [*] Finisher Plate [*] [*] (5= normal, 4= good, 3= fair, 2= poor, 1= trace) ROM: Both upper extremities WFL Functional Transfer: Assistive Device: Front wheeled walker Gait belt Transfer Ability: 2-person assist Maximum assistance ADL: Upper body dressing: Assistive device: Upper body dressing ability: Lower body dressing: Assistive device: Lower body dressing ability: Toileting: Assistive device: Bedside Commode Toileting ability: Maximum assistance Grooming/hygiene: N/T Assistive device: Grooming ability: Bathing: N/T Assistive device: Bathing ability: Standardized Assessment: Wilfred Index of Activities of Daily Living- Pt. scored 04/20 on this Index upon initial evaluation. ASSESSMENT: Pt. is a 83 year old female who was admitted to [facility] medical floor on 11/02/18 with heart failure. Pt. was admitted to [facility] on 11/06/18 for end of life care. Pt. would now like to return home. Prior to [facility] admission, pt. was residing alone in [place] with no assistance. Pt. will need to be very independent upon d/c to home as pt. is not willing to have assistance ( care) in her home. Problem List/Current Limitations: Decreased activity stephanie Decreased strength Decreased coordination Generalized weakness Poor safety awareness Lack of motivation Short Term Goals: 1. Pt. to perform dressing activities with Min A. 2. Pt. to perform showering activities with Min A. 3. Pt. to perform toileting activities with Min A. 4. Pt. to increase Wilfred Index of ADL score by 2 points. Distance Learning Program Coordinator Goals: Return home. Patient Goals: Return home Rehabilitation Prognosis: Poor Barriers to Discharge: Home set up (multiple stairs in home), pt. not willing to accept help in home. PLAN: The patient will benefit from skilled occupational therapy services 5 times per week for 2 weeks including: Ther ex ADL training Safety training Ther act IADL training Transfer training Adaptive equip training Bed mobility Thank you for this referral. If you have any questions, concerns, or comments about this report or plan, please contact me at . Betsey Gold, OTR/L Occupational Therapist ERIK
[2018-11-24] MEDS: LIDOCAINE 5% PATCH TP SCH (21:00)
[2018-11-25 07:50] VITALS: BP 159/90
[2018-11-25] MEDS: DOCUSATE SODIUM 100 MG CAP PO SCH ×2 (09:45→20:50)
[2018-11-25] MEDS: PATCH REMOVAL 1 EA TP SCH (09:45)
[2018-11-25] MEDS: LORazepam 2 MG/ML VIAL IVP PRN (17:59)
[2018-11-25] MEDS: LIDOCAINE 5% PATCH TP SCH (20:50)
[2018-11-26 07:50] VITALS: BP 157/67
[2018-11-26] MEDS: PATCH REMOVAL 1 EA TP SCH (09:00)
[2018-11-26] MEDS: DOCUSATE SODIUM 100 MG CAP PO SCH ×2 (09:12→21:32)
[2018-11-26] MEDS: LIDOCAINE 5% PATCH TP SCH (21:32)
[2018-11-26] MEDS: MORPHINE 2 MG/ML SYR IVP PRN (22:25)
[2018-11-27] MEDS: SCOPOLAMINE 1.5 MG PATCH TD PRN (04:41)
[2018-11-27] MEDS: MORPHINE 2 MG/ML SYR IVP PRN ×3 (04:50→22:29)
[2018-11-27] MEDS: PROMETHAZINE 25 MG/ML 1 ML AMP IVP PRN ×2 (07:35→19:43)
[2018-11-27] MEDS: LORazepam 2 MG/ML VIAL IVP PRN (08:01)
[2018-11-27] MEDS: DOCUSATE SODIUM 100 MG CAP PO SCH ×2 (09:00→20:49)
[2018-11-27] MEDS: PATCH REMOVAL 1 EA TP SCH (09:00)
--- NOTE | 2018-11-27 12:52 | NUR ---
Physical Therapy Impression This PT attempted PT eval, Pt lethargic and unable to participate. Will attempt tomorrow. Physical Therapy Goals Patient's Goals
--- NOTE | 2018-11-27 13:02 | Medical Nutrition Therapy ---
Nutrition Anthropometrics Height (Inches): 62.00 Height (Calculated Centimeters: 157.376668 Weight (Pounds): 90 Weight (Calculated Kilograms): 40.965 Guillermo Nutrition Score: Very Poor Guillermo Nutrition Risk Score: 11 Dietary Referral Nutrition Risk Factors: Diff. Swallowing Nutrition Risk Comment: Pt here for end of life care, is not eating. Physical Findings Physical Appearance: Underweight BMI<19 Skin Appearance Skin Appearance: Edema Edema Location Modifier: Both Edema Location: Lower Extremity Type of Edema: Degree of Edema: 2+ Gastrointestinal Symptoms GI Symtoms: Appetite Changes Tube Present: Bowel Sounds: Recent Bowel Pattern: Stool Characteristics: Nutritional Diagnosis Nutritional Risk Acuity 2: Swallowing Problem Nutritional Risk Acuity 4: Age Related Past Medical History: Heart Failure, Hyperthyroid, Microcytic Anemia Nutritional Acuity: 2-Moderate Nutrition Diagnosis: Inadequate Food Intake Nutrition Etiology: End of Life Care Nutrition Problem/Etiology/Sym: AEB pt eaiting 0-50% of meals. Energy Requirement: 1425 (MSJ) Protein Requirement: 44 (1gm/kg) Fluid Requirement: 1425 Diet Type: Diet as Tolerated TREVOR/REG Nutrition Intervention: Cont diet as ordered Nutrition Monitoring & Eval Nutritional Goals Comment: pt will consume food and fluids for comfort care RD Patient Assessment Time: [address] Assessment Type: RD Re-Assessment Patient Nutrition Acuity: 2-Moderate Follow Up Date: December 05, 2018 Nutritional Comment: 11/08 Pt admitted for end of life care. Nursing reported pt is unresponsive most of the time. Nursing providing foods and fluids as appropriate for end of life care. Will cont to monitor. JOSÉ MIGUEL 11/13 Pt cont on comfort care. Pt is on regular diet but not taking any meals. Nursing providing food and fluids as appropriate. Will cont to monitor. JOSÉ MIGUEL 11/20 Pt cont on comfort care. Pt is on regular diet and eating 0-50% of most meals. Nursing cont to report swallowing problems. Will cont to monitor. JOSÉ MIGUEL 11/27 Pt cont on comfort care. Pt is on regular diet and eating 0-75% of small portions. Nursing cont to report swallowing problems. Will cont to monitor. MAGGIE RODAS Nov 27, 2018 13:02
--- NOTE | 2018-11-27 13:31 | NUR ---
Occupational Therapy Impression Pt. not able to form an understandable word or sentence. Pt. SpO2 at 86%, RN notified. Pt. not appropriate to participate in therapy services today. Occupational Therapy Goals 1. Pt. to perform dressing activities with Min A. 2. Pt. to perform showering activities with Min A. 3. Pt. to perform toileting activities with Min A. 4. Pt. to increase Wilfred Index of ADL score by 2 points. Patient's Goal
[2018-11-27 17:10] VITALS: BP 148/68
[2018-11-27] MEDS: LIDOCAINE 5% PATCH TP SCH (20:49)
[2018-11-28] MEDS: DOCUSATE SODIUM 100 MG CAP PO SCH ×2 (09:09→21:00)
[2018-11-28] MEDS: PATCH REMOVAL 1 EA TP SCH (09:09)
--- NOTE | 2018-11-28 11:55 | NUR ---
Physical Therapy Impression PT ECF eval completed. PT/OT co-treat for pt safety. Pt completed ambulation with W/C follow and use of FWW with Min/CGA and frequent cues for posture and use of UE's on FWW when legs became weaker. Physical Therapy Goals Patient's Goals
--- NOTE | 2018-11-28 12:44 | NUR ---
Occupational Therapy Impression Co-treat with PT. Pt. transferred from EOB to [facility] with Min A x2. Pt. required Max A- total A to perform toileting activities. Pt. ambulated 125 feet with use of FWW with Min A x2. OT recommends pt. d/c with 24 hr. care. Continue with POC. Occupational Therapy Goals 1. Pt. to perform dressing activities with Min A. 2. Pt. to perform showering activities with Min A. 3. Pt. to perform toileting activities with Min A. 4. Pt. to increase Wilfred Index of ADL score by 2 points. Patient's Goal
[2018-11-28 15:45] VITALS: BP 122/73
[2018-11-28] MEDS: LIDOCAINE 5% PATCH TP SCH (21:00)
[2018-11-29] MEDS: PATCH REMOVAL 1 EA TP SCH (09:20)
[2018-11-29] MEDS: DOCUSATE SODIUM 100 MG CAP PO SCH ×2 (09:20→21:01)
--- NOTE | 2018-11-29 12:52 | NUR ---
Occupational Therapy Impression Min A supine to sit. CGA stand pivot bed<>BSC. CGAx1 ambulation x20ft with RW and close w/c follow. Max Ax1 toileting. Pt seated up in w/c for lunch at end of tx. Occupational Therapy Goals 1. Pt. to perform dressing activities with Min A. 2. Pt. to perform showering activities with Min A. 3. Pt. to perform toileting activities with Min A. 4. Pt. to increase Wilfred Index of ADL score by 2 points. Patient's Goal
--- NOTE | 2018-11-29 15:54 | Hospitalist Progress Note ---
Subjective Progress Notes Subjective She reports she feels "scared at night" She feels uncomfortable when she wakes up and gets anxious. She also states she cannot eat or drink due to dry mouth. Patient Complains of: Cardiovascular: No: Chest Pain Respiratory: No: Shortness of Breath Physical Exam Vital Signs Date Time Temp Pulse Resp B/P (MAP) Pulse Ox O2 Delivery O2 Flow Rate FiO2 11/28/18 22:00 94 Room Air 11/28/18 15:45 97.6 86 20 122/73 (89) Intake and Output 11/29/18 01:00 Intake Total 700 ml Balance 700 ml Intake Oral 700 ml # Voids 5 General Appearance: Alert, Awake, No Acute Distress Respiratory: No Respiratory Distress GI: Soft and Non-Tender Psych: Alert & Oriented X3, Appropriate Mood & Affect Assessment and Plan Problems: (1) End of life care Status: Acute Assessment & Plan: The patient has CHF and her EF has decreased. She has elected to have comfort care only. Although she has a terminal diagnosis, she has improved somewhat since admission to [facility]. She is not eating or drinking well however, and is not likely to live long. She will receive scheduled Ativan IVP at night, as well as prn Ativan pushes, to help with her anxiety at night and hopefully help her sleep better. AUGUSTINE MARINO PLASTIC BATTERY ASSEMBLER November 29, 2018 15:54
--- NOTE | 2018-11-29 16:30 | NUR ---
Physical Therapy Impression Pt tolerated ambulation to/from BR with FWW and demos improved sit to/from stand transfers. Pt unable to complete don/doff of brief or pericare safely due to decreased balance. Physical Therapy Goals 1. Pt to be modified indep with bed mobility and sup<>sit trnsfrs 2. Pt to be modified indep with safe sit to/from stand transfers 3. Pt to ambulate with SBA and FWW x 100' consistently for household mobility 4. Pt to complete up/down platform step with CGA/Min assist and FWW. Patient's Goals
[2018-11-29 17:15] VITALS: BP 140/87
[2018-11-29] MEDS: LORazepam 2 MG/ML VIAL IVP SCH (21:01)
[2018-11-29] MEDS: LIDOCAINE 5% PATCH TP SCH (21:01)
[2018-11-30] MEDS: DOCUSATE SODIUM 100 MG CAP PO SCH ×2 (09:20→20:12)
[2018-11-30] MEDS: PATCH REMOVAL 1 EA TP SCH (09:30)
--- NOTE | 2018-11-30 12:03 | NUR ---
Physical Therapy Impression Pt agreeable to work with therapy this date. Able to get OOB with HOB raised and use of bed rail with SBA. SBA sit to stand from EOB. Ambulation x 75' with FWW and CGA with assist for FWW mgmt. Pt unsafe to mobilize without hands on assist. Pt soiled in brief but declined transfer to [facility] and continued ambulating into hallway. Notified nursing of this. Recommend 24 hr care. Physical Therapy Goals 1. Pt to be modified indep with bed mobility and sup<>sit trnsfrs 2. Pt to be modified indep with safe sit to/from stand transfers 3. Pt to ambulate with SBA and FWW x 100' consistently for household mobility 4. Pt to complete up/down platform step with CGA/Min assist and FWW. Patient's Goals
--- NOTE | 2018-11-30 14:54 | NUR ---
Occupational Therapy Impression Min A sit<>stand with RW. Min A ambulation x8ft with RW. Pt unsteady, legs buckling and ready to sit at any time. Pt seated safely in w/c and assisted to toilet. Max A toileting. Max Ax1 stand pivot BSC<>bed. Max A sit<>supine bed mobility. Continue POC. Occupational Therapy Goals 1. Pt. to perform dressing activities with Min A. 2. Pt. to perform showering activities with Min A. 3. Pt. to perform toileting activities with Min A. 4. Pt. to increase Wilfred Index of ADL score by 2 points. Patient's Goal
[2018-11-30 17:20] VITALS: BP 115/63
[2018-11-30] MEDS: LIDOCAINE 5% PATCH TP SCH (20:11)
[2018-11-30] MEDS: LORazepam 2 MG/ML VIAL IVP SCH (20:11)
--- NOTE | 2018-12-01 08:48 | NUR ---
Occupational Therapy Impression Min A supine to sit. CGA sit<>stand. Min A ambulation with RW x25ft, pt fatigues quickly, requires close chair follow to sit rapidly. Min A stand<>sit and v/c's for safe sequencing. Min A grooming seated. Max A LB dressing. Pt will require 24/7 assist upon discharge for ADLs/IADLs. Occupational Therapy Goals 1. Pt. to perform dressing activities with Min A. 2. Pt. to perform showering activities with Min A. 3. Pt. to perform toileting activities with Min A. 4. Pt. to increase Wilfred Index of ADL score by 2 points. Patient's Goal
[2018-12-01] MEDS: DOCUSATE SODIUM 100 MG CAP PO SCH ×2 (09:30→21:00)
[2018-12-01] MEDS: PATCH REMOVAL 1 EA TP SCH (09:30)
--- NOTE | 2018-12-01 15:01 | NUR ---
SW spoke with pt in attempt to complete MDS. Pt refused, reporting she did not want to participate and SW completed staff interview for this reason. C: pt's memory appears to be OK, but concerns for pt's ability to make decisions for self. SW had verbal conversation with Adriel CIFUENTES, who reports she does not believe pt has capacity to make decisions for her care and plans to document this, D: 01, E: no concerns, Q: pt voices desire to DC to home and son wants to honor this wish, with services for safety in the home. Will follow-up next week for plans after son has time to discuss with pt and consider options.
--- NOTE | 2018-12-01 16:27 | NUR ---
Physical Therapy Impression Pt sleeping and unable to be awakened. Physical Therapy Goals 1. Pt to be modified indep with bed mobility and sup<>sit trnsfrs 2. Pt to be modified indep with safe sit to/from stand transfers 3. Pt to ambulate with SBA and FWW x 100' consistently for household mobility 4. Pt to complete up/down platform step with CGA/Min assist and FWW. Patient's Goals
[2018-12-01] MEDS: PROMETHAZINE 25 MG/ML 1 ML AMP IVP PRN (18:53)
[2018-12-01] MEDS: LIDOCAINE 5% PATCH TP SCH (21:00)
[2018-12-01] MEDS: LORazepam 2 MG/ML VIAL IVP SCH (21:00)
[2018-12-02] MEDS: PATCH REMOVAL 1 EA TP SCH (09:00)
[2018-12-02] MEDS: DOCUSATE SODIUM 100 MG CAP PO SCH ×2 (10:20→20:43)
[2018-12-02] MEDS: IBUPROFEN 200 MG TAB PO PRN (10:20)
[2018-12-02 16:55] VITALS: BP 123/73
[2018-12-02] MEDS: LORazepam 2 MG/ML VIAL IVP SCH (20:43)
[2018-12-02] MEDS: LIDOCAINE 5% PATCH TP SCH (20:43)
[2018-12-03 07:35] VITALS: BP 162/96
[2018-12-03] MEDS: DOCUSATE SODIUM 100 MG CAP PO SCH ×2 (08:40→20:56)
[2018-12-03] MEDS: PATCH REMOVAL 1 EA TP SCH (08:40)
[2018-12-03] MEDS: IBUPROFEN 200 MG TAB PO PRN (10:25)
[2018-12-03] MEDS: MORPHINE 2 MG/ML SYR IVP PRN (11:35)
--- NOTE | 2018-12-03 13:29 | PT ECF NOTE ---
Type of Note: Initial Note Primary Medical Diagnosis: Heart failure Physical Therapy Evaluation Date: 11/23/18 SUBJECTIVE: Prior Hospitalization: Pt. was on [facility] medical floor from 11/02/18 till 11/06/18. Prior Level of Function: Pt. was Independent prior to [facility] medical admission. Prior Living Status: Bi-level house Community Services: had declines in home services recommended in the past Home Accessibility: Stairs with rails Equipment Owned: Medical Complications/Past Medical History: Please refer to chart for details. Psychosocial Support: Supportive neighbor Pain Scale (0-10): None stated OBJECTIVE: Strength: B) LE's 3+/5 overall and can lift against gravity but fatigues quickly ROM: (please note any abnormalities) No limitations noted Sensation: (please note any abnormalities) No paresthesias reported Other Neuro findings: None indicated Bed Mobility: Min/CGA Assistive device: Bed rail; Head of bed elevated Transfers: Minimum assistance; CGA Assistive Device: Front wheeled walker Gait: CGA x 100' with close W/C follow Assistive device: Front wheeled walker Stairs: Assistive device: Timed Up and Go (>12 seconds indicated increased risk for falls): Unable to ambulate safely without assistance at this time. 10 meter walk test (0.6m/second cannot function independently): n/a Other Objective Measures: n/a ASSESSMENT: Pt takes in nourishment sporadically and this affects pt's ability to participate in rehab for functional mobility. Today, pt is feeling well and agreeable to attempt ambulation with PT and OT for pt's safety with close W/C follow. Pt would benefit from rehab if her intent is to return home, as this would currently not be a safe option, given pt's limited strength and endurance for basic ADL's. Problem List/Current Limitations: Decreased activity stephanie, Decreased strength, Decreased balance, Generalized weakness, Poor safety awareness, Decreased problem solving Short Term Goals: 1. Pt to be modified indep with bed mobility and sup<>sit trnsfrs 2. Pt to be modified indep with safe sit to/from stand transfers 3. Pt to ambulate with SBA and FWW x 100' consistently for household mobility 4. Pt to complete up/down platform step with CGA/Min assist and FWW. Water Team Leader Goals: Pt to d/c to the most supportive and least restrictive environment for pt safety. Patient Goals: To return home without additional assistance in her home. Rehabilitation Prognosis: Fair Barriers for Discharge: Pt's limited insight into her functional needs as well as safety concerns that pt does not seem to grasp her true limitations for safe functional mobility and self care at this time. Pt continues to request to d/c home, but then declines the additional support that would allow for a safe transition home. PLAN: The patient will benefit from skilled physical therapy services 5 times per week for 2 weeks including: Therapeutic Activities Transfer Training, Gait Training, Stair Training, ADL's, Safety Training, Pt/Caregiver Training, Bed Mobility Thank you for this referral. If you have any questions, concerns, or comments about this report or plan, please contact me at . h. Jaclyn Valdez, PT, MPT, OMS MTDD
[2018-12-03 17:10] VITALS: BP 128/78
[2018-12-03 19:50] VITALS: BP 127/67
[2018-12-03] MEDS: LIDOCAINE 5% PATCH TP SCH (20:56)
[2018-12-03] MEDS: LORazepam 2 MG/ML VIAL IVP SCH (20:56)
[2018-12-04] MEDS: LORazepam 2 MG/ML VIAL IVP PRN ×2 (02:48→10:06)
[2018-12-04 07:45] VITALS: BP 151/97
[2018-12-04] MEDS: MORPHINE 2 MG/ML SYR IVP PRN ×3 (08:57→23:46)
[2018-12-04] MEDS: PATCH REMOVAL 1 EA TP SCH (08:58)
[2018-12-04] MEDS: DOCUSATE SODIUM 100 MG CAP PO SCH ×2 (09:00→20:46)
--- NOTE | 2018-12-04 15:38 | NUR ---
Physical Therapy Impression Attempted to see Pt at 1125 and again at 1336, both attempts Pt politely declined. Physical Therapy Goals 1. Pt to be modified indep with bed mobility and sup<>sit trnsfrs 2. Pt to be modified indep with safe sit to/from stand transfers 3. Pt to ambulate with SBA and FWW x 100' consistently for household mobility 4. Pt to complete up/down platform step with CGA/Min assist and FWW. Patient's Goals
[2018-12-04 16:03] VITALS: BP 137/85
[2018-12-04] MEDS: LORazepam 2 MG/ML VIAL IVP SCH (20:46)
[2018-12-04] MEDS: LIDOCAINE 5% PATCH TP SCH (20:47)
[2018-12-05 07:20] VITALS: BP 104/64
[2018-12-05] MEDS: MORPHINE 2 MG/ML SYR IVP PRN ×3 (08:03→18:24)
[2018-12-05] MEDS: PATCH REMOVAL 1 EA TP SCH (08:44)
[2018-12-05] MEDS: SCOPOLAMINE 1.5 MG PATCH TD PRN (08:44)
[2018-12-05] MEDS: DOCUSATE SODIUM 100 MG CAP PO SCH ×2 (08:45→20:47)
--- NOTE | 2018-12-05 10:44 | NUR ---
Physical Therapy Impression SBAR with nurse and attempted to see pt with nurse. Pt reaching out in front and gazing past without making eye contact. Pt was agreeable to being repositioned in bed and did take a sip of water, but not able to follow cues for therapy at this time. Not appropriate for rehab in current state. Physical Therapy Goals 1. Pt to be modified indep with bed mobility and sup<>sit trnsfrs 2. Pt to be modified indep with safe sit to/from stand transfers 3. Pt to ambulate with SBA and FWW x 100' consistently for household mobility 4. Pt to complete up/down platform step with CGA/Min assist and FWW. Patient's Goals
--- NOTE | 2018-12-05 12:14 | Hospitalist Progress Note ---
Subjective Progress Notes Subjective Much less responsive. She does acknowledge some dyspnea and pain along costal margins. She is not currently oriented to time nor place. Physical Exam Vital Signs Date Time Temp Pulse Resp B/P (MAP) Pulse Ox O2 Delivery O2 Flow Rate FiO2 12/05/18 07:20 88 Room Air 12/05/18 07:20 97.0 80 16 104/64 (77) 80 Intake and Output 12/05/18 07:00 Intake Total 100 ml Balance 100 ml Intake Oral 100 ml # Voids 2 General Appearance: Other (sedate, but does awaken and answer some simple questions) Cardiovascular: Other (Fairly regular with systolic/diastolic murmurs) Respiratory: Other (diminished at both bases) GI: Other (soft, but reacts as if in pain/rare BS) Extremities: Perfused, Edema (trace) Assessment and Plan Problems: (1) End of life care Status: Acute Assessment & Plan: The patient has severe CHF and her EF has further decreased. She has elected to have comfort care only. Although she has a terminal diagnosis, she had actually improved somewhat since her admission to [facility]. Now, however, she has started to decline once again. She is more symptomatic and is not eating or drinking much at all. Her mental status has declined. She lacks the capacity to make decisions for herself at this time. Her son is acting as her POA. She is not likely to live long. She will continue to receive Ativan and morphine for noxious symptoms. JOVANNY CRUZ MD December 05, 2018 12:14
--- NOTE | 2018-12-05 12:28 | Medical Nutrition Therapy ---
Nutrition Anthropometrics Height (Inches): 62.00 Height (Calculated Centimeters: 157.945078 Weight (Pounds): 83 Weight (Calculated Kilograms): 37.733 BMI: 15.2 Guillermo Nutrition Score: Probably Inadequate Guillermo Nutrition Risk Score: 12 Dietary Referral Nutrition Risk Factors: Diff. Swallowing Nutrition Risk Comment: Pt here for end of life care, is not eating. Physical Findings Physical Appearance: Underweight BMI<19 Skin Appearance Skin Appearance: Edema Edema Location Modifier: Both Edema Location: Lower Extremity Type of Edema: Degree of Edema: 2+ Gastrointestinal Symptoms GI Symtoms: Nausea, Vomiting Tube Present: Bowel Sounds: Recent Bowel Pattern: Stool Characteristics: Nutrition/Food History Decreasing Skipped Meals: No Snacks: Refusing Nutritional Diagnosis Nutritional Risk Acuity 1: %IBW < 74% (69%) Nutritional Risk Acuity 2: Swallowing Problem Nutritional Risk Acuity 4: Age Related Past Medical History: Heart Failure, Hyperthyroid, Microcytic Anemia Nutritional Acuity: 1-High Nutrition Diagnosis: Inadequate Food Intake Nutrition Etiology: End of Life Care Nutrition Problem/Etiology/Sym: AEB pt eaiting 0-50% of meals. Energy Requirement: 1425 (MSJ) Protein Requirement: 44 (1gm/kg) Fluid Requirement: 1425 Diet Type: Diet as Tolerated TREVOR/REG Nutrition Intervention: Cont diet as ordered Nutrition Monitoring & Eval RD Patient Assessment Time: [address] Assessment Type: RD Re-Assessment Patient Nutrition Acuity: 1-High Follow Up Date: December 12, 2018 Nutritional Comment: 11/08 Pt admitted for end of life care. Nursing reported pt is unresponsive most of the time. Nursing providing foods and fluids as appropriate for end of life care. Will cont to monitor. BK 11/13 Pt cont on comfort care. Pt is on regular diet but not taking any meals. Nursing providing food and fluids as appropriate. Will cont to monitor. BK 11/20 Pt cont on comfort care. Pt is on regular diet and eating 0-50% of most meals. Nursing cont to report swallowing problems. Will cont to monitor. BK 11/27 Pt cont on comfort care. Pt is on regular diet and eating 0-75% of small portions. Nursing cont to report swallowing problems. Will cont to monitor. BK 12/05 Pt is still on comfort care. Pt is on a regular diet and now eating 0-75% of meals and refusing snacks. Pt still is having problems swallowing and has a dry mouth. Pt is 69% of IBW and has had almost an 8% wt loss since 11/21. Will continue to monitor. KATLIN HENDERSON December 05, 2018 10:30
[2018-12-05] MEDS: LORazepam 2 MG/ML VIAL IVP PRN (13:20)
--- NOTE | 2018-12-05 16:29 | PT ECF NOTE ---
Type of Note: Discharge Summary Primary Medical Diagnosis: Heart failure Physical Therapy Discharge Date: 11/23/18 SUBJECTIVE: Prior Hospitalization: Pt. was on [facility] medical floor from 11/02/18 till 11/06/18. Prior Level of Function: Pt. was Independent prior to [facility] medical admission. Prior Living Status: Bi-level house Community Services: had declines in home services recommended in the past Home Accessibility: Stairs with rails Equipment Owned: Medical Complications/Past Medical History: Please refer to chart for details. Psychosocial Support: Supportive neighbor OBJECTIVE: Strength: B) LE's 3+/5 overall and can lift against gravity but fatigues quickly ROM: (please note any abnormalities) No limitations noted Sensation: (please note any abnormalities) No paresthesias reported Other Neuro findings: None indicated Bed Mobility: Min/CGA Assistive device: Bed rail; Head of bed elevated Transfers: Minimum assistance- SBA Assistive Device: Front wheeled walker Gait: CGA x 100' with close W/C follow Assistive device: Front wheeled walker ASSESSMENT: The patient demonstrated inconsistent ability to tolerate PT intervention and has missed 3 PT visits, including pt refusals and pt not being medically appropriate for therapy session. Pt will now be discharged from PT services and is available to evaluate in the future if the patient is appropriate for services. Problem List/Current Limitations: Decreased activity stephanie, Decreased strength, Decreased balance, Generalized weakness, Poor safety awareness, Decreased problem solving Short Term Goals: (not met) 1. Pt to be modified indep with bed mobility and sup<>sit trnsfrs 2. Pt to be modified indep with safe sit to/from stand transfers 3. Pt to ambulate with SBA and FWW x 100' consistently for household mobility 4. Pt to complete up/down platform step with CGA/Min assist and FWW. Handle Sander Operator Goals: Pt to d/c to the most supportive and least restrictive environment for pt safety. (not met) Patient Goals: To return home without additional assistance in her home. (not met) PLAN: The patient has missed 3 PT services and is now discharged from PT services. Thank you for this referral. If you have any questions, concerns, or comments about this report or plan, please contact me at . Veronique Mooney, PT, DPT MTDD
[2018-12-05 18:55] VITALS: BP 138/86
[2018-12-05] MEDS: LIDOCAINE 5% PATCH TP SCH (20:47)
[2018-12-05] MEDS: LORazepam 2 MG/ML VIAL IVP SCH (20:47)
[2018-12-06] MEDS: MORPHINE 2 MG/ML SYR IVP PRN ×3 (02:08→17:05)
[2018-12-06] MEDS: LORazepam 2 MG/ML VIAL IVP PRN (02:08)
[2018-12-06] MEDS: DOCUSATE SODIUM 100 MG CAP PO SCH ×2 (09:30→20:37)
[2018-12-06] MEDS: PATCH REMOVAL 1 EA TP SCH (09:30)
--- NOTE | 2018-12-06 12:51 | OT ECF NOTE ---
Type of Note: Discharge Note Primary Medical Diagnosis: Heart failure Occupational Therapy Evaluation Date: 11/23/18 SUBJECTIVE: Prior Hospitalization: Pt. was on [facility] medical floor from 11/02/18 till 11/06/18. Prior Level of Function: Pt. was Independent prior to [facility] medical admission. Prior Living Status: Bi-level house Home Accessibility: Stairs with rails Equipment Owned: None Medical Complications/Past Medical History: Please refer to chart for details. Psychosocial Support: Supportive neighbor Pain Scale (0-10): None stated OBJECTIVE: Strength: MMT: Right Left Shoulder Flexion [*] [*] Elbow Flexion [*] [*] Wrist Extension [*] [*] Obgyn Nurse [*] [*] (5= normal, 4= good, 3= fair, 2= poor, 1= trace) ROM: Both upper extremities, WFL Functional Transfer: Assistive Device: Front wheeled walker, Gait belt Transfer Ability: 2-person assist, Maximum assistance ADL: Upper body dressing: Assistive device: Upper body dressing ability: Total Assistance Lower body dressing: Assistive device: Lower body dressing ability: Total Assistance Toileting: Assistive device: Bedside Commode Toileting ability: Maximum assistance-Total Assistance Grooming/hygiene: Assistive device: Grooming ability: Maximum assistance Bathing: N/T Assistive device: Bathing ability: Standardized Assessment: Wilfred Index of Activities of Daily Living- Pt. scored 09/20 on this Index upon initial evaluation. Pt scored 2/20 upon discharge (12/06/18). ASSESSMENT: Pt. is a 83 year old female who was admitted to [facility] medical floor on 11/02/18 with heart failure. Pt. was admitted to [facility] on 11/06/18 for end of life care. Pt. would now like to return home. Prior to [facility] admission, pt. was residing alone in [place] with no assistance. Pt has missed 3 consecutive OT treatments and will be discharged from OT services. Pt has regressed with in level of function and social security assessor is assisting with appropriate discharge planning. Short Term Goals: 1. Pt. to perform dressing activities with Min A. Goal not met. 2. Pt. to perform showering activities with Min A. Goal not met. 3. Pt. to perform toileting activities with Min A. Goal not met. 4. Pt. to increase Wilfred Index of ADL score by 2 points. Goal not met. Halfway Goals: Return home. Patient Goals: Return home Rehabilitation Prognosis: Poor Barriers to Discharge: Home set up (multiple stairs in home), pt. not willing to accept help in home. PLAN: The patient will be discharged from skilled OT services due to missing 3 consecutive OT treatments. field services manager is assisting with appropriate discharge planning in accordance with pt and pt family wishes. Thank you for this referral. If you have any questions, concerns, or comments about this report or plan, please contact me at . Agnes Li MS, OTR/L Occupational Therapist [facility]
[2018-12-06] MEDS: LORazepam 2 MG/ML VIAL IVP SCH (20:37)
[2018-12-06] MEDS: LIDOCAINE 5% PATCH TP SCH (20:37)
[2018-12-07] MEDS: LORazepam 2 MG/ML VIAL IVP PRN (01:03)
[2018-12-07] MEDS: PATCH REMOVAL 1 EA TP SCH (09:00)
[2018-12-07] MEDS: DOCUSATE SODIUM 100 MG CAP PO SCH ×2 (09:00→20:23)
[2018-12-07] MEDS: MORPHINE 2 MG/ML SYR IVP PRN ×2 (09:42)
[2018-12-07] MEDS ORDERED: MORPHINE 1 MG/ML 30 ML PCA SC PRN (13:45)
--- NOTE | 2018-12-07 15:08 | NUR ---
Tavon Mccormack notified of change in pain management and the start of continuous Morphine subq. He is appreciative of the update.
[2018-12-07] MEDS: LORazepam 2 MG/ML VIAL IVP SCH (20:22)
[2018-12-07] MEDS: LIDOCAINE 5% PATCH TP SCH (20:22)
[2018-12-08] MEDS ORDERED: MORPHINE 50 MG/50 ML PCA BAG IV PRN (04:35)
[2018-12-08] MEDS ORDERED: PCA LOCKBOX KEYS XX ONE (05:03)
[2018-12-08] MEDS: DOCUSATE SODIUM 100 MG CAP PO SCH (09:00)
[2018-12-08] MEDS ORDERED: ACETAMINOPHEN 650 MG SUPP PR PRN (11:35)
--- NOTE | 2018-12-08 12:10 | NUR ---
Spoke with Ksenia regarding apparent imminent . Discussed organ donation and he stated that he believes this is against everything his mom ever talked about and is "pretty sure" that it is against her Islam belief.
[2018-12-08] MEDS: LIDOCAINE 5% PATCH TP SCH (21:00)
[2018-12-08] MEDS: LORazepam 2 MG/ML VIAL IVP SCH (21:00)
--- NOTE | 2018-12-08 22:22 | Death Summary ---
Pronounced Date: December 08, 2018 Pronounced Time: 22:00 Preliminary Cause of : Reduced EF CHF Assessment: Swallowing difficulties Aortic Aneurysm Microcytic Anemia History of Present Illness Please see admission history and physical for details. Hospital Course The patient has severe CHF and her EF has further decreased. She has elected to have comfort care only, so was transferred to the [facility] on 11/06. Although she has a terminal diagnosis, she had actually improved somewhat since her a dmission to ECF. Then in the last couple of days, she has started to decline once again. She became more symptomatic and was not eating or drinking much at all. Her mental status has declined. She lacks the capacity to make decisions for herself at this time. Her son is acting as her POA. She was started on a continuous infusion of morphine, yesterday. She was found without spontaneous respirations or heart tones this evening. Copies to: BLOSSOM ROMERO MD ; KILLIAN ANDERSON MD December 08, 2018 22:22
== END 2018-12-08 22:00 | disposition expired | DRG 951 ==
LOC: ECF 16:30
PROVIDERS: ADMIT Internal Medicine; ATTEND Internal Medicine
DX: Z51.5 Encounter for palliative care (principal); I50.22 Chronic systolic (congestive) heart failure; I34.0 Nonrheumatic mitral (valve) insufficiency; I07.1 Rheumatic tricuspid insufficiency; I35.1 Nonrheumatic aortic (valve) insufficiency; I71.9 Aortic aneurysm of unspecified site, without rupture; E03.9 Hypothyroidism, unspecified; R53.1 Weakness; D50.9 Iron deficiency anemia, unspecified; R13.10 Dysphagia, unspecified; R09.02 Hypoxemia; F41.9 Anxiety disorder, unspecified
CPT/HCPCS: 97161; 97165; J2060; J2270; J2550